=== PATIENT | male | born 1955 | race African-American/Black ===

== ENCOUNTER 2017-06-30 16:57 | Inpatient (IN) | payer MEDICARE, OTHER ==
[~2017-06-30] VITALS: Ht 170.2 cm; Wt 86.2 kg
[2017-06-30 17:00] VITALS: BP 163/68
[2017-06-30 17:48] LABS: ANION GAP 14 mmol/L (5-15); BLOOD UREA NITROGEN 58 mg/dL (7-18); CARBON DIOXIDE 24 MMOL/L (21-32); CHLORIDE 97 MMOL/L (98-107); POTASSIUM 4.5 MMOL/L (3.5-5.1); SODIUM 135 MMOL/L (136-145)
[2017-06-30 17:49] LABS: HEMATOCRIT 32.6 % (42.0-52.0); HEMOGLOBIN 10.1 G/DL (14.2-18.0); MEAN CORPUSCULAR VOLUME 89 FL (80-99); PLATELET COUNT 89 K/UL (150-450); RED BLOOD COUNT 3.68 M/UL (4.70-6.10); RED CELL DISTRIBUTION WIDTH 15.2 % (11.6-14.8); WHITE BLOOD COUNT 6.6 K/UL (4.8-10.8)
--- NOTE | 2017-06-30 17:51 | Emergency Room Report ---
History of Present Illness General Chief Complaint: Nausea Source: Patient Present Illness HPI 62-year-old male, history of end-stage renal disease on dialysis Saturday and Saturday, last dialysis was yesterday, presenting with fever nausea and vomiting. Patient states about 2-3 episodes of nonbilious nonbloody vomiting today. No diarrhea. Is passing gas. No abdominal surgeries. Slight cough. No chest pain no shortness of breath Allergies: Coded Allergies: No Known Allergies (Unverified , 06/30/17) Patient History Past Medical History: see triage record Past Surgical History: none Pertinent Family History: none Reviewed Nursing Documentation: PMH: Agreed, PSxH: Agreed Nursing Documentation-PMH Hx Hypertension: Yes Hx Pacemaker: No Hx Asthma: No Hx Diabetes: Yes Hx Cancer: No Hx Gastrointestinal Problems: No Hx Dialysis: No History Of Psychiatric Problem: No Hx Neurological Problems: No Hx Cerebrovascular Accident: No Review of Systems All Other Systems: negative except mentioned in HPI Physical Exam Vital Signs Date Time Temp Pulse Resp B/P (MAP) Pulse Ox O2 Delivery O2 Flow Rate FiO2 06/30/17 16:49 101.5 101 18 196/97 96 Room Air Sp02 EP Interpretation: reviewed, normal General Appearance: alert, GCS 15, non-toxic, mild distress Head: normocephalic, atraumatic Eyes: bilateral eye normal inspection, bilateral eye PERRL, bilateral eye EOMI ENT: normal ENT inspection, normal pharynx, normal voice, moist mucus membranes Neck: normal inspection, full range of motion, supple Respiratory: normal inspection, lungs clear, normal breath sounds, no respiratory distress, no retraction, no wheezing, speaking full sentences, chest symmetrical Cardiovascular #1: normal inspection, regular rate, rhythm, no edema, normal capillary refill Cardiovascular #2: 2+ radial (R), 2+ radial (L) Gastrointestinal: normal inspection, non tender, soft, non-distended, no guarding Genitourinary: no CVA tenderness Musculoskeletal: normal inspection, back normal, normal range of motion, non- tender Neurologic: normal inspection, alert, oriented x3, responsive, motor strength/ tone normal, sensory intact, normal gait, speech normal Psychiatric: normal inspection, judgement/insight normal, memory normal Skin: normal inspection, normal color, no rash, warm/dry, well hydrated, normal turgor Medical Decision Making Diagnostic Impression: Primary Impression: Nausea and vomiting in adult patient Additional Impressions: Generalized weakness ESRD (end stage renal disease) Fall ER Course 62-year-old male with nausea vomiting, fever Differential Diagnosis: Gastritis, gastroenteritis, cholecystitis, appendicitis, diverticulitis, SBO, mesenteric ischemia, cardiac, UTI/pyelo At this time abdomen is soft nontender, not likely to have acute intra- abdominal surgical pathology, will hold CT for now. Plan: Basic labs, ua, ekg IVF ER course: Patient has remained HD stable during ED stay. Further information is obtained after family arrives, state that patient felt very weak today, was unable to walk, fell and they found him on the ground. Patient is on Plavix. Unknown if there was LOC CT head performed - negative +fever, no source, broad spectrum abx given Disposition: Patient will be admitted to Telemetry Discussed with hospitalist Please note that this Emergency Department Report was dictated using [employer] technology software, occasionally this can lead to erroneous entry secondary to interpretation by the dictation equipment EKG Diagnostic Results EP Interpretation: Yes Rate: normal Rhythm: NSR ST Segments: T-wave inversions V4 V5 V6 ASA given to patient: No Rhythm Strip EP Interpretation: Yes Rate: 85 Rhythm: NSR, no PVCs, no ectopy Laboratory Tests Test 06/30/17 17:30 White Blood Count 6.6 K/UL (4.8-10.8) Red Blood Count 3.68 M/UL (4.70-6.10) L Hemoglobin 10.1 G/DL (14.2-18.0) L Hematocrit 32.6 % (42.0-52.0) L Mean Corpuscular Volume 89 FL (80-99) Mean Corpuscular Hemoglobin 27.4 PG (27.0-31.0) Mean Corpuscular Hemoglobin Concent 30.9 G/DL (32.0-36.0) L Red Cell Distribution Width 15.2 % (11.6-14.8) H Platelet Count 89 K/UL (150-450) L Mean Platelet Volume 9.9 FL (6.5-10.1) Neutrophils (%) (Auto) % (45.0-75.0) Lymphocytes (%) (Auto) % (20.0-45.0) Monocytes (%) (Auto) % (1.0-10.0) Eosinophils (%) (Auto) % (0.0-3.0) Basophils (%) (Auto) % (0.0-2.0) Differential Total Cells Counted 100 Neutrophils % (Manual) 87 % (45-75) H Lymphocytes % (Manual) 11 % (20-45) L Monocytes % (Manual) 2 % (1-10) Eosinophils % (Manual) 0 % (0-3) Basophils % (Manual) 0 % (0-2) Band Neutrophils 0 % (0-8) Platelet Estimate Decreased L Platelet Morphology Normal Hypochromasia 1+ Anisocytosis 1+ Sodium Level 135 MMOL/L (136-145) L Potassium Level 4.5 MMOL/L (3.5-5.1) Chloride Level 97 MMOL/L (98-107) L Carbon Dioxide Level 24 MMOL/L (21-32) Anion Gap 14 mmol/L (5-15) Blood Urea Nitrogen 58 mg/dL (7-18) H Creatinine 9.0 MG/DL (0.55-1.30) H Estimate Glomerular Filtration Rate 7.3 mL/min (>60) Glucose Level 231 MG/DL (74-106) H Lactic Acid Level 1.20 mmol/L (0.66-2.22) Calcium Level 9.0 MG/DL (8.5-10.1) Total Bilirubin 1.0 MG/DL (0.2-1.0) Aspartate Amino Transferase (AST) 33 U/L (15-37) Alanine Aminotransferase (ALT) 40 U/L (12-78) Alkaline Phosphatase 133 U/L (46-116) H Troponin I 0.230 ng/mL (0.000-0.056) Pro-B-Type Natriuretic Peptide 86451 pg/mL (0-125) H Total Protein 7.8 G/DL (6.4-8.2) Albumin 3.9 G/DL (3.4-5.0) Globulin 3.9 g/dL Albumin/Globulin Ratio 1.0 (1.0-2.7) Lipase 105 U/L (73-393) Last Vital Signs Date Time Temp Pulse Resp B/P (MAP) Pulse Ox O2 Delivery O2 Flow Rate FiO2 06/30/17 16:49 101.5 101 18 196/97 96 Room Air Disposition: ADMITTED INPATIENT Condition: Serious Referrals: NOT CHOSEN IPA/MD,REFERRING (PCP) Ellen Fair M.D. Jun 30, 2017 17:51
[2017-06-30 17:59] LABS: ALANINE AMINOTRANSFERASE 40 U/L (12-78); ALBUMIN 3.9 G/DL (3.4-5.0); ALKALINE PHOSPHATASE 133 U/L (46-116); ASPARTATE AMINO TRANSFERASE 33 U/L (15-37)
[2017-06-30] MEDS ORDERED: NEPHRO-VITE RX1 EAC1 PO (18:30)
[2017-06-30] MEDS ORDERED: Vancomycin 1.5gm/D5W 250ml 250 ML IVPB ONE (18:30)
[2017-06-30] MEDS ORDERED: Cefepime HCl 2 GM in D5W 55 ML IVPB ONE (18:30)
[2017-06-30] MEDS ORDERED: LISINOPRIL40 MG ORAL (18:30)
[2017-06-30] MEDS ORDERED: SENSIPAR30 MG ORAL (18:30)
[2017-06-30] MEDS ORDERED: JANUVIA25 MG ORAL (18:30)
[2017-06-30 19:00] VITALS: BP 157/67
[2017-06-30] MEDS ORDERED: Cefepime 2gm ONE (19:10)
[2017-06-30 20:30] VITALS: BP 152/65
[2017-06-30 22:00] VITALS: BP 158/71
[2017-06-30 23:30] VITALS: BP 161/69
[2017-07-01 00:43] VITALS: BP 160/72
--- NOTE | 2017-07-01 02:30 | History and Physical Report ---
DATE OF ADMISSION: 06/30/2017 REASON FOR ADMISSION: Elevated troponin level and fevers. HISTORY OF PRESENT ILLNESS: This is a 62-year-old male with end-stage renal disease, on hemodialysis three times a week. His last dialysis was yesterday and subsequently he developed nausea, vomiting, and anorexia. He also had fevers. Temperature of 101 was recorded in the emergency room. The patient had 2-3 episodes of bilious vomiting today. No other symptoms including abdominal pain or diarrhea were noted. He has had slight cough, however. PAST MEDICAL HISTORY: Includes hypertension, end-stage renal disease, type 2 diabetes mellitus, questionable history of retinopathy. ALLERGIES: None. FAMILY HISTORY: Noncontributory. SOCIAL HISTORY: Negative for smoking, alcohol, or substance abuse. MEDICATIONS: Prior to admission, incomplete list reviewed and reconciled. I will attempt to contact family members to update list. PHYSICAL EXAMINATION: VITAL SIGNS: Temperature 101.5, blood pressure 196/97, pulse 101, respiratory rate 18. GENERAL: Poor attention span due to somnolence, but the patient is arousable and coherent. HEENT: Conjunctivae pink. Sclerae anicteric. Oropharynx clear. Mucous membranes moist. NECK: Supple. LUNGS: Clear. CARDIAC: Regular rhythm and rate. Normal S1, S2 with a fourth heart sound. ABDOMEN: Soft, nontender. No guarding or rebound. EXTREMITIES: No edema. LABORATORY AND DIAGNOSTIC DATA: EKG reveals sinus rhythm, left ventricular hypertrophy with repolarization changes. White count 6.6, hemoglobin 10.1. Troponin 0.23. Lactic acid normal. BUN 58, creatinine 9, sodium 135, potassium 4.5, bicarbonate 24. Pro-natriuretic peptide 34,000. IMPRESSION: 1. Fevers, nausea, and vomiting, possible gastroenteritis or other colitis. 2. Acute on chronic diastolic congestive heart failure. 3. Acute myocardial ischemia and possible qyi-MQ-tmylanqst infarction. 4. End-stage renal disease. 5. Anemia of chronic kidney disease. 6. Type 2 diabetes mellitus. 7. Hypertensive heart disease, now with hypertensive urgency. PLAN: 1. Continue empiric antibiotics initiated in the emergency room. 2. Follow up culture results. 3. Serial troponin, CK, and CK-MB fractions. 4. Cardiac monitoring. 5. Anti-platelet therapy. 6. Beta-blockade. 7. Titration of antihypertensive. 8. Renal consultation for hemodialysis and ultrafiltration. 9. Further recommendations will follow based on clinical course. Gonzalo Salas M.D. DR: Myranda JOB#: [id number] CC:
[2017-07-01] MEDS ORDERED: Mylanta II UD 30ml ORAL ONE (04:15)
[2017-07-01] MEDS ORDERED: NovoLOG Insulin Flexpen SUBQ SCH (06:30)
[2017-07-01 06:49] LABS: HEMATOCRIT 28.7 % (42.0-52.0); HEMOGLOBIN 9.1 G/DL (14.2-18.0); MEAN CORPUSCULAR VOLUME 88 FL (80-99); PLATELET COUNT 73 K/UL (150-450); RED BLOOD COUNT 3.26 M/UL (4.70-6.10); RED CELL DISTRIBUTION WIDTH 15.1 % (11.6-14.8); WHITE BLOOD COUNT 6.1 K/UL (4.8-10.8)
[2017-07-01] MEDS: NovoLOG Insulin Flexpen SUBQ SCH ×4 (06:56→22:25)
[2017-07-01 07:21] LABS: ALANINE AMINOTRANSFERASE 42 U/L (12-78); ALBUMIN 3.4 G/DL (3.4-5.0); ALBUMIN/GLOBULIN RATIO 0.9 (1.0-2.7); ALKALINE PHOSPHATASE 110 U/L (46-116); ANION GAP 15 mmol/L (5-15); ASPARTATE AMINO TRANSFERASE 21 U/L (15-37); BILIRUBIN,TOTAL 0.9 MG/DL (0.2-1.0); BLOOD UREA NITROGEN 68 mg/dL (7-18); CALCIUM 8.3 MG/DL (8.5-10.1); CARBON DIOXIDE 23 MMOL/L (21-32); CHLORIDE 97 MMOL/L (98-107); CHOLESTEROL 127 MG/DL (< 200); CKMB 1.1 NG/ML (0.0-3.6); CREATINE KINASE 144 U/L (26-308); CREATININE 10.2 MG/DL (0.55-1.30); HDL CHOLESTEROL 44 MG/DL (40-60); POTASSIUM 4.6 MMOL/L (3.5-5.1); SODIUM 135 MMOL/L (136-145); TRIGLYCERIDES 91 MG/DL (30-150)
[2017-07-01 08:00] VITALS: BP 149/70
--- NOTE | 2017-07-01 08:12 | Diagnostic Imaging Report ---
Indication: Reason For Exam: PAIN Technique: Continuous helical CT scanning of the head was performed without intravenous contrast material. Axial and coronal 5 mm sections were generated. Dose: Total Dose Length Product - DLP [address] Dose Index - CTDIvol(s) 70.3 mGy. Automated exposure control was utilized for dose reduction. Comparison: None Findings: There is mild prominence of cortical sulci and the ventricular system. Mild periventricular low density is present. There is no shift of midline structures. No abnormal extra-axial fluid collections are noted. There is no evidence of intracerebral bleeding. No other abnormal high or low density areas are noted within the brain. Impression: Mild atrophy. Mild chronic small vessel white matter ischemic change. No acute abnormality. The above report is concordant with preliminary reading by [employer] . The CT scanner at [facility] is accredited by the [employer] and the scans are performed using protocols designed to limit radiation exposure to as low as reasonably achievable to attain images of sufficient resolution adequate for diagnostic evaluation.
[2017-07-01] MEDS: Sensipar 30mg Tab ORAL SCH ×3 (09:00→15:57)
[2017-07-01] MEDS: Aspirin Baby 81mg ORAL SCH (10:07)
[2017-07-01 12:00] VITALS: BP 150/71
--- NOTE | 2017-07-01 14:56 | Consultation ---
Consult Note Consult Note asked by Dr casillas to ellie for dialysis management Present Illness HPI 62-year-old male, history of end-stage renal disease on dialysis Saturday and Saturday, last dialysis was yesterday, presenting with fever nausea and vomiting. Patient states about 2-3 episodes of nonbilious nonbloody vomiting today. No diarrhea. Is passing gas. No abdominal surgeries. Slight cough. No chest pain no shortness of breath Hx Hypertension: Yes Hx Diabetes: Yes Assessment/Plan IMP: 1. Fevers, nausea, and vomiting, possible gastroenteritis or other colitis. 2. Acute on chronic diastolic congestive heart failure. 3. Acute myocardial ischemia and possible lkd-MT-lvabbzgdq infarction. 4. End-stage renal disease. last dialysed 06/29 5. Anemia of chronic kidney disease. 6. Type 2 diabetes mellitus. 7. Hypertensive heart disease, now with hypertensive urgency. Plan: Dialysed 07/01 next HD 07/03 IV iron and SQ EPO Renvela Antibiotics optimize cardiac and pulm status per orders OUSMANE VALENTINE Jul 01, 2017 14:56
[2017-07-01 18:00] VITALS: BP 156/91
[2017-07-01] MEDS ORDERED: Cefepime HCl 1 GM in D5W 55 ML IVPB SCH (19:00)
--- NOTE | 2017-07-01 19:14 | Cardiology Report ---
APPROVED REPORT EKG Measurement Heart [id number] [place] [id number] Normal sinus rhythm Left ventricular hypertrophy with repolarization abnormality Abnormal ECG
--- NOTE | 2017-07-01 19:45 | Progress Note ---
DATE: 07/01/2017 CARDIOLOGY AND INTERNAL MEDICINE PROGRESS NOTE SUBJECTIVE: The patient seen with family members at bedside today. More history is obtained. The patient apparently has been withdrawn and "sick" for the past 3-4 days. It started with upper respiratory infection and what is described as cold. It resulted in loss of appetite, weakness, and inability to perform ADLs. He was still weak yesterday. He apparently fell. He is unable to mobilize independently. He did go to dialysis on Saturday, but did not have a full session. He had fevers yesterday, but has defervesced since admission. OBJECTIVE: VITAL SIGNS: Blood pressure 160/72, pulse 80, respiratory rate 24, afebrile, and room air oxygen saturation 97%. HEENT: Oropharynx clear. NECK: Supple. LUNGS: With few rhonchi. CARDIAC: Regular rhythm and rate. Normal S1 and S2. ABDOMEN: Soft, nontender. No guarding or rebound. EXTREMITIES: No edema. LABORATORY AND DIAGNOSTIC DATA: There was no record of any chest x-ray done in the emergency room although last night and I have reordered one stat. Laboratories today, white count 6, hemoglobin 9. BUN 68, creatinine 10, potassium 4.6, and bicarbonate 23. Troponin increased to 0.355. CK and CK-MB as well as CK relative index are negative. Natriuretic peptide is over 35,000. IMPRESSION: 1. Sepsis, possible pneumonia. 2. Acute on chronic diastolic congestive heart failure. 3. Acute myocardial ischemia. 4. Possible mmb-VH-ugqvrtojd infarction. 5. Type 2 diabetes with hyperglycemia. 6. End-stage renal disease, on hemodialysis. 7. The patient remains critical with guarded prognosis. PLAN: 1. Anti-platelet therapy. 2. Advance beta-jeyson. 3. Titrate antihypertensives as needed. 4. Empiric antibiotics. 5. Await chest x-ray. 6. DVT prophylaxis. 7. Hemodialysis with ultrafiltration. Gonzalo Salas M.D. DR: Jewels JOB#: [id number] CC:
[2017-07-01 20:00] VITALS: BP 141/90
[2017-07-01] MEDS: Heparin 5000 units/ml inj SUBQ SCH (21:00)
[2017-07-01 22:00] VITALS: BP 180/89
[2017-07-01] MEDS: Carvedilol 6.25mg Tab ORAL SCH (22:19)
[2017-07-01] MEDS: Cefepime 500mg in D5W 55ml IVPB SCH (22:20)
[2017-07-02] VITALS: BP 150/72
[2017-07-02 04:00] VITALS: BP 135/72
[2017-07-02] MEDS: NovoLOG Insulin Flexpen SUBQ SCH ×4 (06:48→21:22)
[2017-07-02 08:00] VITALS: BP 137/65
[2017-07-02 08:07] LABS: HEMATOCRIT 29.5 % (42.0-52.0); HEMOGLOBIN 9.3 G/DL (14.2-18.0); MEAN CORPUSCULAR VOLUME 87 FL (80-99); PLATELET COUNT 91 K/UL (150-450); RED BLOOD COUNT 3.37 M/UL (4.70-6.10); RED CELL DISTRIBUTION WIDTH 15.2 % (11.6-14.8); WHITE BLOOD COUNT 4.8 K/UL (4.8-10.8)
[2017-07-02 08:41] LABS: ANION GAP 11 mmol/L (5-15); BLOOD UREA NITROGEN 62 mg/dL (7-18); CALCIUM 8.2 MG/DL (8.5-10.1); CARBON DIOXIDE 32 MMOL/L (21-32); CHLORIDE 98 MMOL/L (98-107); CHOLESTEROL 123 MG/DL (< 200); CREATININE 8.7 MG/DL (0.55-1.30); FERRITIN 426 NG/ML (8-388); HDL CHOLESTEROL 33 MG/DL (40-60); POTASSIUM 3.6 MMOL/L (3.5-5.1); SODIUM 141 MMOL/L (136-145); TRIGLYCERIDES 134 MG/DL (30-150)
[2017-07-02] MEDS: Heparin 5000 units/ml inj SUBQ SCH ×2 (09:00→21:00)
[2017-07-02 09:10] LABS: % IRON SATURATION 9 % (15-50); IRON 16 ug/dL (50-175); TOTAL IRON BINDING CAPACITY 184 ug/dL (250-450)
[2017-07-02 09:11] LABS: CREATINE KINASE 198 U/L (26-308); GAMMA GLUTAMYL TRANSPEPTIDASE 112 U/L (5-85); PHOSPHORUS 5.6 MG/DL (2.5-4.9)
[2017-07-02] MEDS: Carvedilol 6.25mg Tab ORAL SCH ×2 (09:16→21:21)
[2017-07-02] MEDS: Aspirin Baby 81mg ORAL SCH (09:17)
[2017-07-02] MEDS ORDERED: Iron Sucrose 200 MG in NS 110 ML IV ONE (11:00)
[2017-07-02 12:00] VITALS: BP 131/58
[2017-07-02] MEDS: Docusate 100mg cap ORAL SCH ×2 (13:18→18:00)
--- NOTE | 2017-07-02 14:19 | Diagnostic Imaging Report ---
Indication: Abnormal breath sounds Comparison: None A single view chest radiograph was obtained. Findings: Exam limited by rotation. The heart is enlarged. Mechanical aortic valve/stent noted. Stent noted in the left upper arm. Lungs are essentially clear. IMPRESSION: Cardiomegaly. No acute findings
--- NOTE | 2017-07-02 15:06 | Diagnostic Imaging Report ---
Indication: Cough Comparison: 07/01/1970 A single view chest radiograph was obtained. Findings: No definite infiltrate or pulmonary vascular congestion identified. The heart is enlarged. The aorta is mildly enlarged consistent with atherosclerotic vascular disease. The bones are osteopenic. Impression: No acute disease
[2017-07-02 16:00] VITALS: BP 132/64
--- NOTE | 2017-07-02 16:30 | Consultation ---
DATE OF CONSULTATION: 07/02/2017 INFECTIOUS DISEASES CONSULTATION REFERRING PHYSICIAN: Gonzalo Salas M.D. REASON FOR CONSULTATION: Possible pneumonia. HISTORY OF PRESENTING ILLNESS: This is a 62-year-old gentleman with history of diabetes, hypertension, coronary artery disease, status post stent placement, renal failure on dialysis, who came in with fevers along with cough, nausea and vomiting. An Infectious Diseases consultation was obtained for a possible pneumonia. PAST MEDICAL HISTORY: 1. History of diabetes. 2. Hypertension. 3. Possible retinopathy. 4. Coronary artery disease, status post stent placement. 5. End-stage renal disease, on dialysis. MEDICATIONS: As an inpatient, he is on Epogen, docusate, Renvela, subcutaneous heparin, carvedilol, cefepime, clonidine, aspirin, Sensipar, amlodipine, insulin, Zofran, and intravenous vancomycin. ALLERGIES: No known drug allergies. SOCIAL HISTORY: He does not smoke, drink, or use drugs. FAMILY HISTORY: Noncontributory. REVIEW OF SYSTEMS: RESPIRATORY: He had fever and chills. He has a cough. He has some shortness of breath. No chest pain. CARDIAC: No chest pain. No palpitations. No dizziness. No syncope. GASTROINTESTINAL: No nausea. No vomiting. No abdominal pain or diarrhea. PHYSICAL EXAMINATION: VITAL SIGNS: Temperature of 98.1 degrees, T-max of 101.7 degrees, pulse of 69, respiratory rate 20, blood pressure 137/65 and O2 saturation of 94%. HEENT: Pupils equally reactive to light and accommodation. Mouth appears clean without thrush. NECK: Supple. No adenopathy. No JVD. CARDIOVASCULAR: Regular rate and rhythm. No murmurs. LUNGS: Clear to auscultation bilaterally. No crackles. No wheezes. ABDOMEN: Soft and nontender. No organomegaly. EXTREMITIES: No cyanosis, no clubbing, and no edema. LABORATORY AND DIAGNOSTIC DATA: White count 4.8, hemoglobin 9.3, hematocrit 29.5, MCV 87, and platelet count of 91 with neutrophils of 83%. Sodium 141, potassium 3.6, chloride 98, bicarbonate 32, BUN 62, creatinine 8.7, and glucose 133. Calcium of 8.2. Total bilirubin of 0.9. On 07/01/2017, AST 21, ALT 40 and alkaline phosphatase 110. CK 144 and CK-MB 1.1. Troponin 0.64. Beta-natriuretic peptide 135,000. Blood cultures are negative so far. CT head is showing mild atrophy, mild chronic small-vessel ischemic disease. ASSESSMENT: 1. This is a 62-year-old gentleman with history of diabetes, hypertension and renal failure, who comes in with fever as well as cough, would be concern regarding a pneumonia, community-acquired pneumonia versus atypical pneumonia. 2. Diabetes. 3. Hypertension. 4. Renal failure. PLAN: 1. Continue IV vancomycin and cefepime for now. 2. We will order sputum for Gram-stain and culture. 3. We will order a chest x-ray. 4. We will follow up cultures. I would like to thank, Dr. Salas, for this consultation. Carmela Rm M.D. DR: JANNY JOB#: [id number] CC: Gonzalo Salas M.D.
[2017-07-02] MEDS ORDERED: Tubing IV Secondary IV ONE (17:00)
[2017-07-02] MEDS ORDERED: NS 275ml ONE (17:00)
[2017-07-02] MEDS ORDERED: Vancomycin 1250mg/D5W 250ml IVPB ONE (18:00)
[2017-07-02] MEDS ORDERED: Renvela 800mg Pkt ORAL SCH (19:00)
[2017-07-02 20:00] VITALS: BP 145/70
[2017-07-02] MEDS: Renvela 800mg Pkt ORAL SCH (21:21)
[2017-07-02] MEDS: Cefepime 500mg in D5W 55ml IVPB SCH (21:28)
[2017-07-03] VITALS: BP 143/69
[2017-07-03 04:00] VITALS: BP 163/81
--- NOTE | 2017-07-03 04:15 | Progress Note ---
DATE: 07/02/2017 INTERNAL MEDICINE PROGRESS NOTE SUBJECTIVE: The patient is still weak. He has less cough and congestion. He is unable to mobilize without assist. He is status post hemodialysis with ultrafiltration. No new fevers. OBJECTIVE: VITAL SIGNS: Blood pressure 145/70, pulse 71, respirations 20, and afebrile. LUNGS: Coarse breath sounds. HEART: Regular rhythm and rate. Normal S1 and S2 with a fourth heart sound. ABDOMEN: Soft. EXTREMITIES: No edema. Symmetric strength. LABORATORY DATA: White count 4.8 and hemoglobin 9.3. Magnesium 2.5. Iron is 16%. IMPRESSION: 1. Acute bronchitis. 2. Metabolic encephalopathy. 3. End-stage renal disease. 4. Acute on chronic diastolic congestive heart failure. 5. Iron deficiency anemia, which is multifactorial. 6. Troponin leak suggesting chronic ischemic heart disease. PLAN: 1. Iron replacement. 2. Empiric antibiotics. 3. Recheck chest x-ray. 4. Follow up sputum studies. 5. Hemodialysis with ultrafiltration. 6. Mobilize. 7. Titrate cardiovascular regimen. 8. Consideration for ischemic workup to follow. Gonzalo Salas M.D. DR: DWAYNE JOB#: [id number] CC:
[2017-07-03] MEDS: NovoLOG Insulin Flexpen SUBQ SCH ×4 (06:39→21:16)
[2017-07-03] MEDS: Carvedilol 6.25mg Tab ORAL SCH ×2 (09:00→21:15)
[2017-07-03] MEDS: Heparin 5000 units/ml inj SUBQ SCH ×2 (09:00→21:00)
[2017-07-03] MEDS: Docusate 100mg cap ORAL SCH ×3 (09:00→17:34)
[2017-07-03] MEDS: Aspirin Baby 81mg ORAL SCH (09:00)
[2017-07-03 11:00] VITALS: BP 159/82
[2017-07-03] MEDS: Renvela 800mg Pkt ORAL SCH ×3 (11:00→17:37)
[2017-07-03] MEDS: Sensipar 30mg Tab ORAL SCH (11:00)
--- NOTE | 2017-07-03 11:08 | Infectious Diseases Prog Note ---
Assessment/Plan Assessment/Plan antibiotics : vancomycin iv, cefepime A 1. fever improving 2. ? pneumonia 3. DM 4. HTN 5. renal failure P 1. continue vancomycin iv, cefepime 2. will follow up cultures Subjective Constitutional: Denies: fever, chills Respiratory: Reports: shortness of breath, dry cough Gastrointestinal/Abdominal: Denies: nausea, vomiting, diarrhea Musculoskeletal: Reports: pain - on coughing Allergies: Coded Allergies: No Known Allergies (Unverified , 06/30/17) Objective Vital Signs Last 24 Hour Vital Signs Date Time Temp Pulse Resp B/P (MAP) Pulse Ox O2 Delivery O2 Flow Rate FiO2 07/03/17 04:00 74 07/03/17 04:00 97.0 71 21 163/81 93 Room Air 07/03/17 00:00 68 07/03/17 00:00 98.1 68 20 143/69 99 Room Air 07/02/17 21:21 71 145/70 07/02/17 20:00 98.1 71 20 145/70 97 Room Air 07/02/17 20:00 71 07/02/17 16:00 71 07/02/17 16:00 98.6 72 20 132/64 92 Room Air 07/02/17 12:00 67 07/02/17 12:00 98.4 65 20 131/58 92 Room Air Height (Feet): 5 Height (Inches): 7.00 Weight (Pounds): 190 Respiratory/Chest: lungs clear Cardiovascular: normal rate, regular rhythm, no gallop/murmur Abdomen: soft, non tender Extremities: no edema Microbiology Date/Time Source Procedure Growth Status 06/30/17 17:30 Blood Blood Culture - Preliminary NO GROWTH AFTER 48 HOURS Resulted 06/30/17 17:20 Blood Blood Culture - Preliminary NO GROWTH AFTER 48 HOURS Resulted 07/01/17 00:00 Nasal Nares MRSA Culture - Final NO METHICILLIN RESISTANT STAPH AUREUS... Complete 07/01/17 00:00 Rectum VRE Culture - Final NO VANCOMYCIN RESISTANT ENTEROCOCCUS ... Complete Laboratory Tests Test 07/02/17 15:00 Random Vancomycin Level 11.3 ug/mL MADISON CAI Jul 03, 2017 11:08
--- NOTE | 2017-07-03 14:01 | Nephrology Progress Note ---
Assessment/Plan Problem List: (1) ESRD (end stage renal disease) (2) Troponin level elevated Assessment 1. Fevers, nausea, and vomiting, possible gastroenteritis or other colitis. 2. Acute on chronic diastolic congestive heart failure. 3. Acute myocardial ischemia and possible aur-EL-gwzkozrrq infarction. 4. End-stage renal disease. last dialysed 06/29 5. Anemia of chronic kidney disease. 6. Type 2 diabetes mellitus. 7. Hypertensive heart disease, now with hypertensive urgency. Plan Plan: Dialysed 07/01 next HD 07/03 IV iron and SQ EPO Renvela Antibiotics optimize cardiac and pulm status per orders Subjective ROS Limited/Unobtainable: No Constitutional: Reports: malaise Objective Objective Last 24 Hour Vital Signs Date Time Temp Pulse Resp B/P (MAP) Pulse Ox O2 Delivery O2 Flow Rate FiO2 07/03/17 04:00 74 07/03/17 04:00 97.0 71 21 163/81 93 Room Air 07/03/17 00:00 68 07/03/17 00:00 98.1 68 20 143/69 99 Room Air 07/02/17 21:21 71 145/70 07/02/17 20:00 98.1 71 20 145/70 97 Room Air 07/02/17 20:00 71 07/02/17 16:00 71 07/02/17 16:00 98.6 72 20 132/64 92 Room Air Intake and Output 07/02/17 07/03/17 19:00 07:00 Intake Total 240 ml Output Total 100 ml Balance 240 ml -100 ml Intake Oral 240 ml Output Urine Total 100 ml Laboratory Tests 07/02/17 15:00: Random Vancomycin Level 11.3 Height (Feet): 5 Height (Inches): 7.00 Weight (Pounds): 190 General Appearance: no apparent distress Objective no change in PE OUSMANE VALENTINE Jul 03, 2017 14:01
[2017-07-03 15:15] VITALS: BP 125/89
[2017-07-03 20:00] VITALS: BP 165/81
[2017-07-03] MEDS: Cefepime 500mg in D5W 55ml IVPB SCH (21:14)
[2017-07-03] MEDS: Epogen (for ESRD on dialysis) SUBQ SCH (21:14)
[2017-07-03] MEDS: Iron Sucrose 100 MG in NS 55 ML IV SCH (21:14)
[2017-07-04] VITALS: BP 178/93
--- NOTE | 2017-07-04 00:45 | Progress Note ---
DATE: 07/03/2017 CARDIOLOGY PROGRESS NOTE SUBJECTIVE: The patient is still feeling weak and lightheaded at times but overall improved. OBJECTIVE: VITAL SIGNS: Afebrile, blood pressure 125/89 to 165/81, heart rate 77 to 90, and respiratory rate 20. Monitor sinus with atrial ectopics. LUNGS: Good breath sounds. No wheezing. HEART: Regular rhythm and rate. Normal S1 and S2 with a fourth heart sound. ABDOMEN: Soft. EXTREMITIES: No edema. LABORATORY DATA: Cultures remain negative. IMPRESSION: 1. End-stage renal disease, on hemodialysis. 2. Probable gastroenteritis. 3. Possible upper respiratory infection. 4. Acute myocardial ischemia and possible non-ST elevation infarction. 5. Acute on chronic diastolic congestive heart failure. 6. Type 2 diabetes mellitus. 7. Hypertensive heart disease with hypertensive urgency now recovering. PLAN: 1. Hemodialysis with ultrafiltration. 2. Iron and Epogen replacement. 3. Empiric antibiotics. 4. Mobilize. 5. Advance antihypertensive therapy. 6. Discharge planning. Gonzalo Salas M.D. DR: DWAYNE JOB#: [id number] CC:
[2017-07-04 04:00] VITALS: BP 168/92
[2017-07-04] MEDS: NovoLOG Insulin Flexpen SUBQ SCH ×4 (06:28→23:07)
[2017-07-04 08:00] VITALS: BP 175/94
[2017-07-04 08:19] LABS: BASOPHILS % (AUTO) 0.8 % (0.0-2.0); EOSINOPHILS % (AUTO) 0.2 % (0.0-3.0); HEMATOCRIT 34.2 % (42.0-52.0); HEMOGLOBIN 10.7 G/DL (14.2-18.0); LYMPHOCYTES % (AUTO) 8.4 % (20.0-45.0); MEAN CORPUSCULAR VOLUME 89 FL (80-99); NEUTROPHILS % (AUTO) 83.6 % (45.0-75.0); PLATELET COUNT 122 K/UL (150-450); RED BLOOD COUNT 3.85 M/UL (4.70-6.10); RED CELL DISTRIBUTION WIDTH 15.1 % (11.6-14.8); WHITE BLOOD COUNT 5.8 K/UL (4.8-10.8)
[2017-07-04 08:36] LABS: ALANINE AMINOTRANSFERASE 34 U/L (12-78); ALBUMIN 2.9 G/DL (3.4-5.0); ALBUMIN/GLOBULIN RATIO 0.7 (1.0-2.7); ALKALINE PHOSPHATASE 94 U/L (46-116); ANION GAP 11 mmol/L (5-15); ASPARTATE AMINO TRANSFERASE 25 U/L (15-37); BILIRUBIN,TOTAL 1.2 MG/DL (0.2-1.0); BLOOD UREA NITROGEN 61 mg/dL (7-18); CALCIUM 9.1 MG/DL (8.5-10.1); CARBON DIOXIDE 32 MMOL/L (21-32); CHLORIDE 97 MMOL/L (98-107); CREATININE 8.7 MG/DL (0.55-1.30); GAMMA GLUTAMYL TRANSPEPTIDASE 96 U/L (5-85); PHOSPHORUS 5.4 MG/DL (2.5-4.9); POTASSIUM 3.8 MMOL/L (3.5-5.1); SODIUM 140 MMOL/L (136-145)
[2017-07-04] MEDS: Carvedilol 6.25mg Tab ORAL SCH ×2 (08:54→23:05)
[2017-07-04] MEDS: Renvela 800mg Pkt ORAL SCH ×3 (08:55→18:00)
[2017-07-04] MEDS: Aspirin Baby 81mg ORAL SCH (08:58)
[2017-07-04] MEDS: Docusate 100mg cap ORAL SCH ×3 (08:59→18:00)
[2017-07-04] MEDS: Heparin 5000 units/ml inj SUBQ SCH ×2 (08:59→21:00)
[2017-07-04 09:43] LABS: BILIRUBIN,DIRECT 0.3 MG/DL (0.0-0.3)
--- NOTE | 2017-07-04 10:47 | Infectious Diseases Prog Note ---
Assessment/Plan Assessment/Plan A 1. fever resolved 2. ? pneumonia 3. DM 4. HPN 5. renal failure, ESRD P 1. discontinue vancomycin iv, continue cefepime 2. will follow up cultures Subjective ROS Limited/Unobtainable: No Constitutional: Reports: no symptoms Respiratory: Reports: no symptoms Cardiovascular: Reports: no symptoms Gastrointestinal/Abdominal: Reports: no symptoms Genitourinary: Reports: no symptoms Allergies: Coded Allergies: No Known Allergies (Unverified , 06/30/17) Objective Vital Signs Last 24 Hour Vital Signs Date Time Temp Pulse Resp B/P (MAP) Pulse Ox O2 Delivery O2 Flow Rate FiO2 07/04/17 08:55 102 175/94 07/04/17 08:54 102 175/94 07/04/17 08:00 98.2 102 20 175/94 95 Room Air 07/04/17 04:00 98.1 90 20 168/92 90 07/04/17 04:00 90 07/04/17 00:07 178/93 07/04/17 00:00 96 07/04/17 00:00 97.9 89 20 178/93 90 07/03/17 21:15 90 165/81 07/03/17 20:00 98.2 90 20 165/81 90 07/03/17 20:00 91 07/03/17 16:00 77 07/03/17 15:15 98.0 78 20 125/89 Room Air 07/03/17 15:15 Room Air 07/03/17 12:00 72 07/03/17 11:00 98.1 75 20 159/82 Room Air 07/03/17 11:00 Room Air Height (Feet): 5 Height (Inches): 7.00 Weight (Pounds): 190 General Appearance: no acute distress HEENT: mucous membranes moist Respiratory/Chest: lungs clear Cardiovascular: tachycardia Abdomen: soft, non tender Extremities: no edema Neurologic/Psychiatric: alert, responsive Laboratory Tests Test 07/04/17 06:50 White Blood Count 5.8 K/UL (4.8-10.8) Red Blood Count 3.85 M/UL (4.70-6.10) L Hemoglobin 10.7 G/DL (14.2-18.0) L Hematocrit 34.2 % (42.0-52.0) L Mean Corpuscular Volume 89 FL (80-99) Mean Corpuscular Hemoglobin 27.7 PG (27.0-31.0) Mean Corpuscular Hemoglobin Concent 31.1 G/DL (32.0-36.0) L Red Cell Distribution Width 15.1 % (11.6-14.8) H Platelet Count 122 K/UL (150-450) L Mean Platelet Volume 9.0 FL (6.5-10.1) Neutrophils (%) (Auto) 83.6 % (45.0-75.0) H Lymphocytes (%) (Auto) 8.4 % (20.0-45.0) L Monocytes (%) (Auto) 7.0 % (1.0-10.0) Eosinophils (%) (Auto) 0.2 % (0.0-3.0) Basophils (%) (Auto) 0.8 % (0.0-2.0) Sodium Level 140 MMOL/L (136-145) Potassium Level 3.8 MMOL/L (3.5-5.1) Chloride Level 97 MMOL/L (98-107) L Carbon Dioxide Level 32 MMOL/L (21-32) Anion Gap 11 mmol/L (5-15) Blood Urea Nitrogen 61 mg/dL (7-18) H Creatinine 8.7 MG/DL (0.55-1.30) H Estimat Glomerular Filtration Rate 7.5 mL/min (>60) Glucose Level 232 MG/DL (74-106) H Uric Acid 4.9 MG/DL (2.6-7.2) Calcium Level 9.1 MG/DL (8.5-10.1) Phosphorus Level 5.4 MG/DL (2.5-4.9) H Magnesium Level 2.3 MG/DL (1.8-2.4) Total Bilirubin 1.2 MG/DL (0.2-1.0) H Direct Bilirubin 0.3 MG/DL (0.0-0.3) Gamma Glutamyl Transpeptidase 96 U/L (5-85) H Aspartate Amino Transf (AST/SGOT) 25 U/L (15-37) Alanine Aminotransferase (ALT/SGPT) 34 U/L (12-78) Alkaline Phosphatase 94 U/L (46-116) Troponin I 0.714 ng/mL (0.000-0.056) C-Reactive Protein, Quantitative 13.5 mg/dL (0.00-0.90) H Pro-B-Type Natriuretic Peptide > 59335 pg/mL (0-125) H Total Protein 7.1 G/DL (6.4-8.2) Albumin 2.9 G/DL (3.4-5.0) L Globulin 4.2 g/dL Albumin/Globulin Ratio 0.7 (1.0-2.7) L Current Medications Medications (Trade) Dose Ordered Sig/Leida Route PRN Reason Start Time Stop Time Status Last Admin Dose Admin Amlodipine Besylate (Norvasc) 5 mg DAILY ORAL 07/01/17 09:00 07/31/17 08:59 07/04/17 08:55 Aspirin (ASA) 81 mg DAILY ORAL 07/01/17 09:00 07/31/17 08:59 07/02/17 09:17 Carvedilol (Coreg) 12.5 mg EVERY 12 HOURS ORAL 07/04/17 09:00 08/03/17 08:59 07/04/17 08:54 Cefepime HCl 500 mg/Dextrose 55 ml @ 110 mls/hr Q24H IVPB 07/01/17 21:00 07/08/17 20:59 07/03/17 21:14 Clonidine HCl (Catapres) 0.1 mg Q4H PRN ORAL SBP above 160 07/01/17 16:00 07/31/17 15:59 07/04/17 00:07 Dextrose (Dextrose 50%) STAT PRN IV Hypoglycemia 07/01/17 02:00 07/31/17 01:59 Docusate Sodium (Colace) 100 mg THREE TIMES A DAY ORAL 07/02/17 13:00 08/01/17 12:59 07/02/17 13:18 Epoetin Lizandro (Procrit (for ESRD on dialysis)) 10,000 units MON-WED-FRI SUBQ 07/03/17 21:00 08/02/17 20:59 07/03/17 21:14 Heparin Sodium (Porcine) (Heparin 5000 units/ml) 5,000 units EVERY 12 HOURS SUBQ 07/01/17 21:00 07/31/17 20:59 Insulin Aspart (NovoLOG) BEFORE MEALS AND HS SUBQ 07/01/17 06:30 07/31/17 06:29 07/04/17 06:28 Iron Sucrose 100 mg/Sodium Chloride 60 ml @ 240 mls/hr BEDTIME IV 07/03/17 21:00 07/07/17 21:14 07/03/17 21:14 Ondansetron HCl (Zofran) 4 mg Q6H PRN IVP Nausea & Vomiting 07/01/17 02:00 07/31/17 01:59 07/02/17 22:13 Sevelamer Carbonate (Renvela) 1,600 mg THREE TIMES A DAY ORAL 07/03/17 18:00 08/02/17 17:59 07/04/17 08:55 Vancomycin HCl (Vanco rx to dose) 1 ea DAILY PRN MISC Per rx protocol 07/01/17 02:00 07/31/17 01:59 MILAGRO LOCKHART Jul 04, 2017 10:47
--- NOTE | 2017-07-04 11:25 | Nephrology Progress Note ---
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 Fevers, nausea, and vomiting, possible gastroenteritis or other colitis. 2. Acute on chronic diastolic congestive heart failure. 3. Acute myocardial ischemia and possible osp-NQ-ypdunptux infarction. 4. End-stage renal disease. last dialysed 06/29 5. Anemia of chronic kidney disease. 6. Type 2 diabetes mellitus. 7. Hypertensive heart disease, now with hypertensive urgency. Plan Plan: adjust BP meds and HR Add Cardiazem and Zestril Coreg dose is upped next HD 07/05 IV iron and SQ EPO Renvela Antibiotics optimize cardiac and pulm status per orders Subjective ROS Limited/Unobtainable: No Constitutional: Reports: malaise Objective Objective Last 24 Hour Vital Signs Date Time Temp Pulse Resp B/P (MAP) Pulse Ox O2 Delivery O2 Flow Rate FiO2 07/04/17 08:55 102 175/94 07/04/17 08:54 102 175/94 07/04/17 08:00 98.2 102 20 175/94 95 Room Air 07/04/17 04:00 98.1 90 20 168/92 90 07/04/17 04:00 90 07/04/17 00:07 178/93 07/04/17 00:00 96 07/04/17 00:00 97.9 89 20 178/93 90 07/03/17 21:15 90 165/81 07/03/17 20:00 98.2 90 20 165/81 90 07/03/17 20:00 91 07/03/17 16:00 77 07/03/17 15:15 98.0 78 20 125/89 Room Air 07/03/17 15:15 Room Air 07/03/17 12:00 72 Intake and Output 07/03/17 07/04/17 19:00 07:00 Intake Total 240 ml 120 ml Output Total 2050 ml Balance -1810 ml 120 ml Intake Oral 240 ml 120 ml Hemodialysis UF 2050 ml Laboratory Tests 07/04/17 06:50: White Blood Count 5.8, Red Blood Count 3.85L, Hemoglobin 10.7L, Hematocrit 34.2L , Mean Corpuscular Volume 89, Mean Corpuscular Hemoglobin 27.7, Mean Corpuscular Hemoglobin Concent 31.1L, Red Cell Distribution Width 15.1H, Platelet Count 122L, Mean Platelet Volume 9.0, Neutrophils (%) (Auto) 83.6H, Lymphocytes (%) (Auto) 8.4L, Monocytes (%) (Auto) 7.0, Eosinophils (%) (Auto) 0.2, Basophils (%) (Auto) 0.8, Sodium Level 140, Potassium Level 3.8, Chloride Level 97L, Carbon Dioxide Level 32, Anion Gap 11, Blood Urea Nitrogen 61H, Creatinine 8.7H, Estimat Glomerular Filtration Rate 7.5, Glucose Level 232H, Uric Acid 4.9, Calcium Level 9.1, Phosphorus Level 5.4H, Magnesium Level 2.3, Total Bilirubin 1.2H, Direct Bilirubin 0.3, Gamma Glutamyl Transpeptidase 96H, Aspartate Amino Transf (AST/SGOT) 25, Alanine Aminotransferase (ALT/SGPT) 34, Alkaline Phosphatase 94, Troponin I 0.714H, C-Reactive Protein, Quantitative 13.5H, Pro-B-Type Natriuretic Peptide > 47211B, Total Protein 7.1, Albumin 2.9L , Globulin 4.2, Albumin/Globulin Ratio 0.7L Height (Feet): 5 Height (Inches): 7.00 Weight (Pounds): 190 General Appearance: no apparent distress Cardiovascular: tachycardia Respiratory/Chest: decreased breath sounds Objective no change in PE OUSMANE VALENTINE Jul 04, 2017 11:25
[2017-07-04] MEDS ORDERED: dilTIAZem HCl CD 120mg cap ORAL SCH (11:30)
[2017-07-04] MEDS ORDERED: Lisinopril 2.5mg tab ORAL SCH (11:30)
[2017-07-04 12:00] VITALS: BP 159/88
[2017-07-04] MEDS: Nitroglycerin Patch 0.2mg/hr TDERMAL SCH (12:45)
[2017-07-04] MEDS ORDERED: Lexiscan 0.4mg/5ml syringe IV ONE (14:30)
[2017-07-04 16:00] VITALS: BP 159/88
[2017-07-04 20:00] VITALS: BP 156/70
[2017-07-04] MEDS: Cefepime 500mg in D5W 55ml IVPB SCH (21:00)
[2017-07-04] MEDS: Iron Sucrose 100 MG in NS 55 ML IV SCH (23:03)
[2017-07-05] VITALS (8 sets, daily range): BP systolic 145–173; BP diastolic 72–87
--- NOTE | 2017-07-05 05:15 | Progress Note ---
DATE: 07/04/2017 CARDIOLOGY PROGRESS NOTE SUBJECTIVE: No chest pain. No shortness of breath. Slightly more energy. He is on hemodialysis with ultrafiltration. Troponin levels continue to remain elevated today at 0.714. PHYSICAL EXAMINATION: VITAL SIGNS: Blood pressure 159/88, pulse 75, respiratory rate 20, afebrile, and room air oxygen 96% saturation. LUNGS: Good breath sounds. HEART: Regular rhythm and rate. Normal S1, S2. ABDOMEN: Soft. No edema. Echocardiogram reveals ejection fraction of 35% with global hypokinesis. IMPRESSION: 1. End-stage renal disease. 2. Acute on chronic systolic and diastolic congestive heart failure. 3. Iron deficiency with anemia. 4. Anemia of chronic kidney disease. 5. Ischemic cardiomyopathy. 6. Acute myocardial infarction. PLAN: 1. Continue anti-platelet therapy. 2. Check lipid panel and consider statin drug. 3. Advance anti-failure regimen. 4. Check myocardial perfusion scan to assess for coronary flow reserve and reversibility. 5. Consideration for cardiac defibrillator in the medical terminologist. Gonzalo Salas M.D. DRLexi PEARSON JOB#: [id number] CC:
[2017-07-05] MEDS: NovoLOG Insulin Flexpen SUBQ SCH ×4 (06:30→22:18)
[2017-07-05 08:18] LABS: BASOPHILS % (AUTO) 0.7 % (0.0-2.0); EOSINOPHILS % (AUTO) 0.3 % (0.0-3.0); HEMATOCRIT 30.5 % (42.0-52.0); HEMOGLOBIN 9.6 G/DL (14.2-18.0); LYMPHOCYTES % (AUTO) 9.9 % (20.0-45.0); MEAN CORPUSCULAR VOLUME 88 FL (80-99); MONOCYTES % (AUTO) 10.6 % (1.0-10.0); NEUTROPHILS % (AUTO) 78.6 % (45.0-75.0); PLATELET COUNT 119 K/UL (150-450); RED BLOOD COUNT 3.47 M/UL (4.70-6.10); RED CELL DISTRIBUTION WIDTH 14.8 % (11.6-14.8); WHITE BLOOD COUNT 3.9 K/UL (4.8-10.8)
[2017-07-05 08:39] LABS: ALANINE AMINOTRANSFERASE 24 U/L (12-78); ALBUMIN 2.7 G/DL (3.4-5.0); ALBUMIN/GLOBULIN RATIO 0.7 (1.0-2.7); ALKALINE PHOSPHATASE 85 U/L (46-116); ANION GAP 11 mmol/L (5-15); ASPARTATE AMINO TRANSFERASE 24 U/L (15-37); BILIRUBIN,TOTAL 1.2 MG/DL (0.2-1.0); BLOOD UREA NITROGEN 83 mg/dL (7-18); CALCIUM 9.6 MG/DL (8.5-10.1); CARBON DIOXIDE 31 MMOL/L (21-32); CHLORIDE 98 MMOL/L (98-107); PHOSPHORUS 5.6 MG/DL (2.5-4.9); SODIUM 140 MMOL/L (136-145)
[2017-07-05 08:43] LABS: BILIRUBIN,DIRECT 0.3 MG/DL (0.0-0.3)
[2017-07-05] MEDS: Carvedilol 6.25mg Tab ORAL SCH ×2 (09:00→22:19)
[2017-07-05] MEDS: Heparin 5000 units/ml inj SUBQ SCH ×2 (09:00→21:00)
[2017-07-05] MEDS ORDERED: Lisinopril 20mg tab ORAL SCH (09:00)
[2017-07-05] MEDS: Docusate 100mg cap ORAL SCH ×3 (09:28→18:00)
[2017-07-05] MEDS: Aspirin Baby 81mg ORAL SCH (09:29)
[2017-07-05] MEDS: Renvela 800mg Pkt ORAL SCH ×3 (09:29→18:41)
--- NOTE | 2017-07-05 10:55 | Nephrology Progress Note ---
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 Fevers, nausea, and vomiting, possible gastroenteritis or other colitis. 2. Acute on chronic diastolic congestive heart failure. 3. Acute myocardial ischemia and possible gax-LM-woprnbops infarction. troponin rising 4. End-stage renal disease. last dialysed 06/29 5. Anemia of chronic kidney disease. 6. Type 2 diabetes mellitus. 7. Hypertensive heart disease, now with hypertensive urgency. Plan Plan: refuses ASA and Heparin !!! adjust BP meds and HR Add Zestril Coreg dose is upped next HD 07/05 IV iron and SQ EPO Renvela Antibiotics optimize cardiac and pulm status per orders Subjective ROS Limited/Unobtainable: No Constitutional: Reports: malaise Objective Objective Last 24 Hour Vital Signs Date Time Temp Pulse Resp B/P (MAP) Pulse Ox O2 Delivery O2 Flow Rate FiO2 07/05/17 04:00 68 07/05/17 04:00 97.7 71 21 145/72 90 07/05/17 00:00 83 07/05/17 00:00 98.2 80 21 156/76 90 07/04/17 23:05 81 156/70 07/04/17 20:00 98.6 81 21 156/70 90 07/04/17 20:00 79 07/04/17 16:00 75 07/04/17 16:00 98.2 100 20 159/88 96 Room Air 07/04/17 12:45 159/88 07/04/17 12:44 159/88 07/04/17 12:41 104 159/88 07/04/17 12:00 97.9 100 20 159/88 95 Room Air Intake and Output 07/04/17 07/05/17 19:00 07:00 Intake Total 360 ml Balance 360 ml Intake Oral 360 ml # Voids 1 # Bowel Movements 1 Laboratory Tests 07/05/17 07:20: White Blood Count 3.9L, Red Blood Count 3.47L, Hemoglobin 9.6L, Hematocrit 30.5L , Mean Corpuscular Volume 88, Mean Corpuscular Hemoglobin 27.8, Mean Corpuscular Hemoglobin Concent 31.6L, Red Cell Distribution Width 14.8, Platelet Count 119L, Mean Platelet Volume 8.5, Neutrophils (%) (Auto) 78.6H, Lymphocytes (%) (Auto) 9.9L, Monocytes (%) (Auto) 10.6H, Eosinophils (%) (Auto) 0.3, Basophils (%) (Auto) 0.7, Sodium Level 140, Potassium Level 4.0, Chloride Level 98, Carbon Dioxide Level 31, Anion Gap 11, Blood Urea Nitrogen 83H, Creatinine 11.0H, Estimat Glomerular Filtration Rate 5.7, Glucose Level 264H, Calcium Level 9.6, Phosphorus Level 5.6H, Magnesium Level 2.7H, Total Bilirubin 1.2H, Direct Bilirubin 0.3, Aspartate Amino Transf (AST/SGOT) 24, Alanine Aminotransferase (ALT/SGPT) 24, Alkaline Phosphatase 85, Troponin I 1.790H, C- Reactive Protein, Quantitative 14.6H, Pro-B-Type Natriuretic Peptide > 34062W, Total Protein 6.7, Albumin 2.7L, Globulin 4.0, Albumin/Globulin Ratio 0.7L Height (Feet): 5 Height (Inches): 7.00 Weight (Pounds): 190 General Appearance: no apparent distress Cardiovascular: normal rate Respiratory/Chest: decreased breath sounds Abdomen: soft Objective no change in PE OUSMANE VALENTINE Jul 05, 2017 10:55
[2017-07-05] MEDS: Imdur 30mg tab ORAL SCH (11:22)
--- NOTE | 2017-07-05 11:55 | Infectious Diseases Prog Note ---
Assessment/Plan Assessment/Plan antibiotics : cefepime A 1. fever improving 2. DM 3. HTN 4. renal failure P 1. d/c cefepime 2. observe off antibiotics Subjective Constitutional: Denies: fever, chills Respiratory: Denies: shortness of breath, dry cough Gastrointestinal/Abdominal: Denies: nausea, vomiting, diarrhea Musculoskeletal: Denies: pain Allergies: Coded Allergies: No Known Allergies (Unverified , 06/30/17) Objective Vital Signs Last 24 Hour Vital Signs Date Time Temp Pulse Resp B/P (MAP) Pulse Ox O2 Delivery O2 Flow Rate FiO2 07/05/17 11:22 154/73 07/05/17 08:00 73 07/05/17 08:00 97.8 72 18 154/73 90 Room Air 07/05/17 04:00 68 07/05/17 04:00 97.7 71 21 145/72 90 07/05/17 00:00 83 07/05/17 00:00 98.2 80 21 156/76 90 07/04/17 23:05 81 156/70 07/04/17 20:00 98.6 81 21 156/70 90 07/04/17 20:00 79 07/04/17 16:00 75 07/04/17 16:00 98.2 100 20 159/88 96 Room Air 07/04/17 12:45 159/88 07/04/17 12:44 159/88 07/04/17 12:41 104 159/88 07/04/17 12:00 97.9 100 20 159/88 95 Room Air Height (Feet): 5 Height (Inches): 7.00 Weight (Pounds): 190 Respiratory/Chest: lungs clear Cardiovascular: normal rate, regular rhythm, no gallop/murmur Abdomen: soft, non tender Extremities: no edema Laboratory Tests Test 07/05/17 07:20 White Blood Count 3.9 K/UL (4.8-10.8) L Red Blood Count 3.47 M/UL (4.70-6.10) L Hemoglobin 9.6 G/DL (14.2-18.0) L Hematocrit 30.5 % (42.0-52.0) L Mean Corpuscular Volume 88 FL (80-99) Mean Corpuscular Hemoglobin 27.8 PG (27.0-31.0) Mean Corpuscular Hemoglobin Concent 31.6 G/DL (32.0-36.0) L Red Cell Distribution Width 14.8 % (11.6-14.8) Platelet Count 119 K/UL (150-450) L Mean Platelet Volume 8.5 FL (6.5-10.1) Neutrophils (%) (Auto) 78.6 % (45.0-75.0) H Lymphocytes (%) (Auto) 9.9 % (20.0-45.0) L Monocytes (%) (Auto) 10.6 % (1.0-10.0) H Eosinophils (%) (Auto) 0.3 % (0.0-3.0) Basophils (%) (Auto) 0.7 % (0.0-2.0) Sodium Level 140 MMOL/L (136-145) Potassium Level 4.0 MMOL/L (3.5-5.1) Chloride Level 98 MMOL/L (98-107) Carbon Dioxide Level 31 MMOL/L (21-32) Anion Gap 11 mmol/L (5-15) Blood Urea Nitrogen 83 mg/dL (7-18) H Creatinine 11.0 MG/DL (0.55-1.30) H Estimat Glomerular Filtration Rate 5.7 mL/min (>60) Glucose Level 264 MG/DL (74-106) H Calcium Level 9.6 MG/DL (8.5-10.1) Phosphorus Level 5.6 MG/DL (2.5-4.9) H Magnesium Level 2.7 MG/DL (1.8-2.4) H Total Bilirubin 1.2 MG/DL (0.2-1.0) H Direct Bilirubin 0.3 MG/DL (0.0-0.3) Aspartate Amino Transf (AST/SGOT) 24 U/L (15-37) Alanine Aminotransferase (ALT/SGPT) 24 U/L (12-78) Alkaline Phosphatase 85 U/L (46-116) Troponin I 1.790 ng/mL (0.000-0.056) C-Reactive Protein, Quantitative 14.6 mg/dL (0.00-0.90) H Pro-B-Type Natriuretic Peptide > 81059 pg/mL (0-125) H Total Protein 6.7 G/DL (6.4-8.2) Albumin 2.7 G/DL (3.4-5.0) L Globulin 4.0 g/dL Albumin/Globulin Ratio 0.7 (1.0-2.7) L MADISON CAI Jul 05, 2017 11:55
[2017-07-05] MEDS: Nitroglycerin Patch 0.2mg/hr TDERMAL SCH (12:27)
--- NOTE | 2017-07-05 14:30 | Diagnostic Imaging Report ---
Indication: chest pain Technique: The study was conducted under the supervision of a classified advertising supervisor. lexiscan (regadenoson) infusion over 10 seconds followed by intravenous administration of 28.5 mCi of technetium 99m Myoview was performed. Three plane SPECT imaging of the heart was then performed. A resting study was performed as part of the one-day protocol with 30.1 mCi of technetium 99m myoview injected intravenously at that time. Three plane SPECT imaging of the heart was obtained. Comparison: None Clinical data: 1. Clinical response: Non ischemic 2. Electrocardiographic response: Non ischemic Findings: The myocardial perfusion scan demonstrates dilated left ventricular chamber. There is a fixed perfusion defect involving the inferior wall consistent with a myocardial infarct. This extends into the left ventricular apex. There is also a nontransmural fixed perfusion defect involving the mid and proximal part of the anterior wall extending into the anteroseptal segment. This may be partially reversible and is probably reflective of an infarct with vibha-infarct ischemia. Please correlate clinically. LVEF is estimated at 27%. IMPRESSION: Fixed perfusion defects involving the inferior wall/apex, anterior wall and anteroseptal segment. Findings consistent with myocardial infarcts. The anteroseptal segment may be partially reversible likely vibha-infarct ischemia. Left ventricular dilatation with low LVEF of 27%
[2017-07-05] MEDS: Epogen (for ESRD on dialysis) SUBQ SCH (22:15)
[2017-07-05] MEDS: Iron Sucrose 100 MG in NS 55 ML IV SCH (22:15)
[2017-07-06] VITALS: BP 176/86
[2017-07-06 04:00] VITALS: BP 150/83
[2017-07-06] MEDS: NovoLOG Insulin Flexpen SUBQ SCH ×4 (07:07→20:46)
[2017-07-06 08:00] VITALS: BP 185/93
--- NOTE | 2017-07-06 08:30 | Progress Note ---
DATE: 07/05/2017 CARDIOLOGY PROGRESS NOTE SUBJECTIVE: The patient without chest pain. No shortness of breath. Anxious to go home. Still feels weak with limited energy and for activities. OBJECTIVE: VITAL SIGNS: Blood pressure 157/87, pulse 81, respiratory rate 20, and afebrile. NECK: Supple. LUNGS: Clear. CARDIAC: Regular rhythm and rate. Normal S1, S2 with a fourth heart sound. ABDOMEN: Soft. EXTREMITIES: No edema. LABORATORY DATA: Troponin levels are above 1. IMPRESSION: 1. Acute myocardial infarction. 2. Ischemic cardiomyopathy. 3. End-stage renal disease. 4. Hypertensive heart disease with accelerated blood pressure. 5. Acute on chronic systolic congestive heart failure. PLAN: 1. Myocardial perfusion scan. 2. Hemodialysis with ultrafiltration. 3. Titrate antihypertensives. 4. Discharge planning to follow. 5. Follow up lipid panel results. 6. Long-term consideration for defibrillator. Gonzalo Salas M.D. DR: RADHA JOB#: [id number] CC:
[2017-07-06] MEDS: Heparin 5000 units/ml inj SUBQ SCH ×2 (09:00→21:02)
[2017-07-06] MEDS: Aspirin Baby 81mg ORAL SCH (09:00)
--- NOTE | 2017-07-06 09:00 | Progress Note ---
DATE: 07/06/2017 CARDIOLOGY PROGRESS NOTE SUBJECTIVE: Myocardial perfusion scan performed yesterday reveals low ejection fraction less than 30%. Diffuse regions of infarct. Minimal reversibility in the septum in a vibha-infarct region. OBJECTIVE: VITAL SIGNS: Blood pressure trend increased. NECK: Supple. LUNGS: Clear. CARDIAC: Regular rhythm and rate. Normal S1, S2 with a fourth heart sound and a 1/6 apical murmur. ABDOMEN: Soft. EXTREMITIES: No edema. IMPRESSION: 1. End-stage renal disease. 2. Ischemic cardiomyopathy. 3. Acute myocardial infraction. 4. Acute on chronic systolic congestive heart failure. 5. Accelerated hypertension. 6. Anemia of chronic kidney disease with iron deficiency. PLAN: Continue Epogen and iron supplement, hemodialysis with ultrafiltration three times a week. Maximize anti-failure and antihypertensive therapy. Long-term consideration for defibrillator implant for primary prevention. Discharge planning. Gonzalo Salas M.D. DR: GILDA/PADDY JOB#: [id number] CC:
[2017-07-06] MEDS: Imdur 30mg tab ORAL SCH (09:51)
[2017-07-06] MEDS: Carvedilol 6.25mg Tab ORAL SCH ×2 (09:51→20:46)
[2017-07-06] MEDS: Lisinopril 20mg tab ORAL SCH (09:52)
[2017-07-06] MEDS: Docusate 100mg cap ORAL SCH ×3 (09:52→18:47)
[2017-07-06] MEDS: Renvela 800mg Pkt ORAL SCH ×3 (09:52→18:47)
--- NOTE | 2017-07-06 11:55 | Nephrology Progress Note ---
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 Fevers, nausea, and vomiting, possible gastroenteritis or other colitis. 2. Acute on chronic diastolic congestive heart failure. 3. Acute myocardial ischemia and possible gyc-PF-qykgxdbvh infarction. troponin rising 4. End-stage renal disease. 5. Anemia of chronic kidney disease. 6. Type 2 diabetes mellitus. 7. Hypertensive heart disease, now with hypertensive urgency. Plan Plan: refuses ASA and Heparin !!! Uncoaporative with taking meds adjust BP meds and HR Add Zestril Coreg dose is upped next HD 07/07 IV iron and SQ EPO Renvela Antibiotics optimize cardiac and pulm status per orders Subjective ROS Limited/Unobtainable: No Constitutional: Reports: malaise, weakness Objective Objective Last 24 Hour Vital Signs Date Time Temp Pulse Resp B/P (MAP) Pulse Ox O2 Delivery O2 Flow Rate FiO2 07/06/17 09:53 95 185/93 07/06/17 09:52 185/93 07/06/17 09:51 185/93 07/06/17 09:51 95 185/93 07/06/17 08:00 97.7 95 20 185/93 93 07/06/17 04:00 86 07/06/17 04:00 97.0 82 18 150/83 91 07/06/17 00:00 79 07/06/17 00:00 97.7 85 20 176/86 90 07/05/17 22:19 83 158/83 07/05/17 20:00 86 07/05/17 20:00 98.2 83 20 158/83 90 07/05/17 18:45 Room Air 07/05/17 18:45 97.8 81 20 157/87 Room Air 07/05/17 16:00 97.6 75 19 158/83 94 Room Air 07/05/17 16:00 79 07/05/17 14:00 Room Air 07/05/17 14:00 97.3 77 20 152/79 Room Air 07/05/17 12:27 173/86 07/05/17 12:00 75 07/05/17 12:00 98.1 78 19 173/86 95 Room Air Intake and Output 07/05/17 07/06/17 19:00 07:00 Intake Total 472 ml Output Total 2000 ml Balance -1528 ml Intake Oral 472 ml Hemodialysis UF 2000 ml # Voids 2 # Bowel Movements 1 3 Height (Feet): 5 Height (Inches): 7.00 Weight (Pounds): 190 General Appearance: no apparent distress, lethargic Respiratory/Chest: decreased breath sounds Abdomen: soft Objective no change in PE OUSMANE VALENTINE Jul 06, 2017 11:55
[2017-07-06 12:00] VITALS: BP 157/94
[2017-07-06] MEDS: Nitroglycerin Patch 0.2mg/hr TDERMAL SCH (12:34)
[2017-07-06 16:00] VITALS: BP 152/82
[2017-07-06] MEDS: Levemir Flexpen SUBQ SCH (18:49)
--- NOTE | 2017-07-06 19:39 | General Progress Note ---
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 and stage 5 chronic kidney disease on chronic dialysis ICD Codes: I13.2 - Hypertensive heart and chronic kidney disease with heart failure and with stage 5 chronic kidney disease, or end stage renal disease; I50.83 - High output heart failure; N18.6 - End stage renal disease; Z99.2 - Dependence on renal dialysis SNOMED: 79296762, 676629858, [id number] Status: stable, progressing Assessment/Plan HD per renal o2 resp care cxr dc planning tomorrow after HD Subjective ROS Limited/Unobtainable: No Constitutional: Reports: malaise, weakness HEENT: Reports: no symptoms Cardiovascular: Reports: no symptoms Respiratory: Reports: cough, shortness of breath Gastrointestinal/Abdominal: Reports: no symptoms Genitourinary: Reports: no symptoms Neurologic/Psychiatric: Reports: no symptoms Endocrine: Reports: no symptoms Hematologic/Lymphatic: Reports: no symptoms Allergies: Coded Allergies: No Known Allergies (Unverified , 06/30/17) All Systems: reviewed and negative except above Subjective c/o weakness. Sob improving but pt not at baseline. Objective Last 24 Hour Vital Signs Date Time Temp Pulse Resp B/P (MAP) Pulse Ox O2 Delivery O2 Flow Rate FiO2 07/06/17 17:24 78 07/06/17 16:00 97.9 76 20 152/82 98 07/06/17 12:34 157/94 07/06/17 12:00 87 07/06/17 12:00 97.5 85 20 157/94 95 07/06/17 09:53 95 185/93 07/06/17 09:52 185/93 07/06/17 09:51 185/93 07/06/17 09:51 95 185/93 07/06/17 08:00 97.7 95 20 185/93 93 07/06/17 08:00 92 07/06/17 08:00 87 07/06/17 04:00 86 07/06/17 04:00 97.0 82 18 150/83 91 07/06/17 00:00 79 07/06/17 00:00 97.7 85 20 176/86 90 07/05/17 22:19 83 158/83 07/05/17 20:00 86 07/05/17 20:00 98.2 83 20 158/83 90 Intake and Output 07/05/17 07/06/17 19:00 07:00 Intake Total 472 ml Output Total 2000 ml Balance -1528 ml Intake Oral 472 ml Hemodialysis UF 2000 ml # Voids 2 # Bowel Movements 1 3 Height (Feet): 5 Height (Inches): 7.00 Weight (Pounds): 190 General Appearance: WD/WN, alert Neck: supple Cardiovascular: normal rate Respiratory/Chest: lungs clear, normal breath sounds, no respiratory distress Abdomen: normal bowel sounds, non tender, soft, no organomegaly Edema: no edema noted Arm (L), no edema noted Arm (R), no edema noted Leg (L), no edema noted Leg (R), no edema noted Pedal (L), no edema noted Pedal (R), no edema noted Generalized Neurologic: web master II-XII grossly normal, alert, oriented x 3, responsive CHIOMA AKHTAR Jul 06, 2017 19:39
[2017-07-06 20:00] VITALS: BP 143/69
[2017-07-07] VITALS: BP_SYST 136; BP_SYST 166; BP_DIAS 71; BP_DIAS 88
[2017-07-07] MEDS: Tums 500mg ORAL PRN (03:09)
[2017-07-07] MEDS: Iron Sucrose 100 MG in NS 55 ML IV SCH ×2 (03:12→21:17)
[2017-07-07 04:00] VITALS: BP 166/88
[2017-07-07] MEDS: NovoLOG Insulin Flexpen SUBQ SCH ×4 (07:12→21:20)
[2017-07-07 07:39] LABS: BASOPHILS % (AUTO) 0.6 % (0.0-2.0); EOSINOPHILS % (AUTO) 0.7 % (0.0-3.0); HEMOGLOBIN 9.2 G/DL (14.2-18.0); LYMPHOCYTES % (AUTO) 8.1 % (20.0-45.0); MEAN CORPUSCULAR VOLUME 89 FL (80-99); MONOCYTES % (AUTO) 6.5 % (1.0-10.0); NEUTROPHILS % (AUTO) 84.2 % (45.0-75.0); PLATELET COUNT 184 K/UL (150-450); RED BLOOD COUNT 3.27 M/UL (4.70-6.10); RED CELL DISTRIBUTION WIDTH 15.2 % (11.6-14.8)
[2017-07-07 08:00] VITALS: BP 164/78
[2017-07-07 08:20] LABS: ALANINE AMINOTRANSFERASE 23 U/L (12-78); ALBUMIN 2.8 G/DL (3.4-5.0); ALBUMIN/GLOBULIN RATIO 0.8 (1.0-2.7); ALKALINE PHOSPHATASE 79 U/L (46-116); ANION GAP 12 mmol/L (5-15); ASPARTATE AMINO TRANSFERASE 21 U/L (15-37); BILIRUBIN,TOTAL 1.4 MG/DL (0.2-1.0); BLOOD UREA NITROGEN 89 mg/dL (7-18); CALCIUM 10.1 MG/DL (8.5-10.1); CARBON DIOXIDE 32 MMOL/L (21-32); CHLORIDE 95 MMOL/L (98-107); CREATININE 11.5 MG/DL (0.55-1.30); PHOSPHORUS 6.2 MG/DL (2.5-4.9); POTASSIUM 4.1 MMOL/L (3.5-5.1); SODIUM 139 MMOL/L (136-145)
[2017-07-07 08:21] LABS: BILIRUBIN,DIRECT 0.4 MG/DL (0.0-0.3)
--- NOTE | 2017-07-07 08:35 | Infectious Diseases Prog Note ---
Assessment/Plan Assessment/Plan A 1. fever resolved 2. ? pneumonia 3. DM 4. HPN 5. renal failure, ESRD P 1. observe off antibiotic Subjective ROS Limited/Unobtainable: No Constitutional: Reports: no symptoms Respiratory: Reports: dry cough Cardiovascular: Reports: no symptoms Gastrointestinal/Abdominal: Reports: no symptoms Allergies: Coded Allergies: No Known Allergies (Unverified , 06/30/17) Objective Vital Signs Last 24 Hour Vital Signs Date Time Temp Pulse Resp B/P (MAP) Pulse Ox O2 Delivery O2 Flow Rate FiO2 07/07/17 04:00 98.2 75 20 166/88 94 07/07/17 04:00 76 07/07/17 00:00 97.3 64 18 136/71 96 07/07/17 00:00 76 07/06/17 20:46 75 143/69 07/06/17 20:00 70 07/06/17 20:00 97.5 75 18 143/69 96 07/06/17 17:24 78 07/06/17 16:00 97.9 76 20 152/82 98 07/06/17 12:34 157/94 07/06/17 12:00 87 07/06/17 12:00 97.5 85 20 157/94 95 07/06/17 09:53 95 185/93 07/06/17 09:52 185/93 07/06/17 09:51 185/93 07/06/17 09:51 95 185/93 Height (Feet): 5 Height (Inches): 7.00 Weight (Pounds): 190 General Appearance: no acute distress HEENT: mucous membranes moist Respiratory/Chest: lungs clear Cardiovascular: normal rate Abdomen: soft, non tender Extremities: no edema Neurologic/Psychiatric: alert, oriented x 3, responsive Laboratory Tests Test 07/07/17 05:20 White Blood Count 7.0 K/UL (4.8-10.8) Red Blood Count 3.27 M/UL (4.70-6.10) L Hemoglobin 9.2 G/DL (14.2-18.0) L Hematocrit 29.0 % (42.0-52.0) L Mean Corpuscular Volume 89 FL (80-99) Mean Corpuscular Hemoglobin 28.2 PG (27.0-31.0) Mean Corpuscular Hemoglobin Concent 31.8 G/DL (32.0-36.0) L Red Cell Distribution Width 15.2 % (11.6-14.8) H Platelet Count 184 K/UL (150-450) Mean Platelet Volume 7.9 FL (6.5-10.1) Neutrophils (%) (Auto) 84.2 % (45.0-75.0) H Lymphocytes (%) (Auto) 8.1 % (20.0-45.0) L Monocytes (%) (Auto) 6.5 % (1.0-10.0) Eosinophils (%) (Auto) 0.7 % (0.0-3.0) Basophils (%) (Auto) 0.6 % (0.0-2.0) Sodium Level 139 MMOL/L (136-145) Potassium Level 4.1 MMOL/L (3.5-5.1) Chloride Level 95 MMOL/L (98-107) L Carbon Dioxide Level 32 MMOL/L (21-32) Anion Gap 12 mmol/L (5-15) Blood Urea Nitrogen 89 mg/dL (7-18) H Creatinine 11.5 MG/DL (0.55-1.30) H Estimat Glomerular Filtration Rate 5.5 mL/min (>60) Glucose Level 242 MG/DL (74-106) H Calcium Level 10.1 MG/DL (8.5-10.1) Phosphorus Level 6.2 MG/DL (2.5-4.9) H Magnesium Level 2.7 MG/DL (1.8-2.4) H Total Bilirubin 1.4 MG/DL (0.2-1.0) H Direct Bilirubin 0.4 MG/DL (0.0-0.3) H Aspartate Amino Transf (AST/SGOT) 21 U/L (15-37) Alanine Aminotransferase (ALT/SGPT) 23 U/L (12-78) Alkaline Phosphatase 79 U/L (46-116) Troponin I 1.037 ng/mL (0.000-0.056) C-Reactive Protein, Quantitative 11.8 mg/dL (0.00-0.90) H Pro-B-Type Natriuretic Peptide > 37903 pg/mL (0-125) H Total Protein 6.3 G/DL (6.4-8.2) L Albumin 2.8 G/DL (3.4-5.0) L Globulin 3.5 g/dL Albumin/Globulin Ratio 0.8 (1.0-2.7) L Current Medications Medications (Trade) Dose Ordered Sig/Leida Route PRN Reason Start Time Stop Time Status Last Admin Dose Admin Amlodipine Besylate (Norvasc) 5 mg DAILY ORAL 07/06/17 09:00 08/05/17 08:59 07/06/17 09:53 Aspirin (ASA) 325 mg DAILY ORAL 07/05/17 09:00 08/04/17 08:59 07/05/17 09:29 Calcium Carbonate (Tums) 500 mg Q3H PRN ORAL Abdominal cramps 07/06/17 16:30 08/05/17 16:29 07/07/17 03:09 Carvedilol (Coreg) 25 mg EVERY 12 HOURS ORAL 07/05/17 09:00 08/04/17 08:59 07/06/17 20:46 Clonidine HCl (Catapres) 0.1 mg Q4H PRN ORAL SBP above 160 07/01/17 16:00 07/31/17 15:59 07/04/17 00:07 Dextrose (Dextrose 50%) STAT PRN IV Hypoglycemia 07/01/17 02:00 07/31/17 01:59 Docusate Sodium (Colace) 100 mg THREE TIMES A DAY ORAL 07/02/17 13:00 08/01/17 12:59 07/06/17 18:47 Epoetin Lizandro (Procrit (for ESRD on dialysis)) 10,000 units MON-SAT-SAT SUBQ 07/03/17 21:00 08/02/17 20:59 07/05/17 22:15 Heparin Sodium (Porcine) (Heparin 5000 units/ml) 5,000 units EVERY 12 HOURS SUBQ 07/01/17 21:00 07/31/17 20:59 07/06/17 21:02 Insulin Aspart (NovoLOG) BEFORE MEALS AND HS SUBQ 07/01/17 06:30 07/31/17 06:29 07/07/17 07:12 Insulin Detemir (Levemir) 4 units BID SUBQ 07/06/17 18:00 08/05/17 17:59 07/06/17 18:49 Iron Sucrose 100 mg/Sodium Chloride 60 ml @ 240 mls/hr BEDTIME IV 07/03/17 21:00 07/07/17 21:14 07/07/17 03:12 Isosorbide Mononitrate (Imdur) 60 mg DAILY ORAL 07/05/17 10:00 08/04/17 09:59 07/06/17 09:51 Lisinopril (Prinivil) 40 mg DAILY ORAL 07/06/17 09:00 08/05/17 08:59 07/06/17 09:52 Nitroglycerin (Ntg) 1 patch Q24H TDERMAL 07/04/17 12:00 08/03/17 11:59 07/06/17 12:34 Ondansetron HCl (Zofran) 4 mg Q6H PRN IVP Nausea & Vomiting 07/01/17 02:00 07/31/17 01:59 07/02/17 22:13 Sevelamer Carbonate (Renvela) 1,600 mg THREE TIMES A DAY ORAL 07/03/17 18:00 08/02/17 17:59 07/06/17 18:47 MILAGRO LOCKHART Jul 07, 2017 08:34
[2017-07-07] MEDS: Imdur 30mg tab ORAL SCH (08:49)
[2017-07-07] MEDS: Docusate 100mg cap ORAL SCH ×3 (08:50→14:06)
[2017-07-07] MEDS: Renvela 800mg Pkt ORAL SCH ×3 (08:50→19:09)
[2017-07-07] MEDS: Carvedilol 6.25mg Tab ORAL SCH ×2 (08:50→21:18)
[2017-07-07] MEDS: Lisinopril 20mg tab ORAL SCH (08:50)
[2017-07-07] MEDS: Aspirin Baby 81mg ORAL SCH ×2 (08:51→09:00)
[2017-07-07] MEDS: Heparin 5000 units/ml inj SUBQ SCH ×2 (08:56→21:19)
[2017-07-07] MEDS: Levemir Flexpen SUBQ SCH ×2 (08:56→19:12)
--- NOTE | 2017-07-07 08:58 | General Progress Note ---
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 ICD Codes: I13.2 - Hypertensive heart and chronic kidney disease with heart failure and with stage 5 chronic kidney disease, or end stage renal disease; I50.83 - High output heart failure; N18.6 - End stage renal disease; Z99.2 - Dependence on renal dialysis SNOMED: 23998477, 391041938, [id number] Assessment/Plan HD per renal o2 resp care cxr added tums for heartburn added levemir bid dc planning if cxr ok, blood sugar better and cleared by pt/ot Subjective ROS Limited/Unobtainable: No Constitutional: Reports: malaise, weakness HEENT: Reports: no symptoms Cardiovascular: Reports: no symptoms Respiratory: Reports: no symptoms Gastrointestinal/Abdominal: Reports: abdominal pain Genitourinary: Reports: no symptoms Neurologic/Psychiatric: Reports: no symptoms Endocrine: Reports: no symptoms Hematologic/Lymphatic: Reports: no symptoms Allergies: Coded Allergies: No Known Allergies (Unverified , 06/30/17) All Systems: reviewed and negative except above Subjective c/o weakness. Sob improving but pt not at baseline. elevated BS 300s last night. pt does not remember how much insulin he was on at home. c/o "heartburn. " Objective Last 24 Hour Vital Signs Date Time Temp Pulse Resp B/P (MAP) Pulse Ox O2 Delivery O2 Flow Rate FiO2 07/07/17 04:00 98.2 75 20 166/88 94 07/07/17 04:00 76 07/07/17 00:00 97.3 64 18 136/71 96 07/07/17 00:00 76 07/06/17 20:46 75 143/69 07/06/17 20:00 70 07/06/17 20:00 97.5 75 18 143/69 96 07/06/17 17:24 78 07/06/17 16:00 97.9 76 20 152/82 98 07/06/17 12:34 157/94 07/06/17 12:00 87 07/06/17 12:00 97.5 85 20 157/94 95 07/06/17 09:53 95 185/93 07/06/17 09:52 185/93 07/06/17 09:51 185/93 07/06/17 09:51 95 185/93 Intake and Output 07/06/17 07/07/17 19:00 07:00 Intake Total 240 ml 120 ml Balance 240 ml 120 ml Intake Oral 240 ml 120 ml # Bowel Movements 2 Laboratory Tests 07/07/17 05:20: White Blood Count 7.0, Red Blood Count 3.27L, Hemoglobin 9.2L, Hematocrit 29.0L , Mean Corpuscular Volume 89, Mean Corpuscular Hemoglobin 28.2, Mean Corpuscular Hemoglobin Concent 31.8L, Red Cell Distribution Width 15.2H, Platelet Count 184, Mean Platelet Volume 7.9, Neutrophils (%) (Auto) 84.2H, Lymphocytes (%) (Auto) 8.1L, Monocytes (%) (Auto) 6.5, Eosinophils (%) (Auto) 0.7, Basophils (%) (Auto) 0.6, Sodium Level 139, Potassium Level 4.1, Chloride Level 95L, Carbon Dioxide Level 32, Anion Gap 12, Blood Urea Nitrogen 89H, Creatinine 11.5H, Estimat Glomerular Filtration Rate 5.5, Glucose Level 242H, Calcium Level 10.1, Phosphorus Level 6.2H, Magnesium Level 2.7H, Total Bilirubin 1.4H, Direct Bilirubin 0.4H, Aspartate Amino Transf (AST/SGOT) 21, Alanine Aminotransferase (ALT/SGPT) 23, Alkaline Phosphatase 79, Troponin I 1.037H, C-Reactive Protein, Quantitative 11.8H, Pro-B-Type Natriuretic Peptide > 92763E, Total Protein 6.3L, Albumin 2.8L, Globulin 3.5, Albumin/Globulin Ratio 0.8L Height (Feet): 5 Height (Inches): 7.00 Weight (Pounds): 190 Objective General Appearance: WD/WN, alert Neck: supple Cardiovascular: normal rate Respiratory/Chest: lungs clear, normal breath sounds, no respiratory distress Abdomen: normal bowel sounds, non tender, soft, no organomegaly Edema: no edema noted Arm (L), no edema noted Arm (R), no edema noted Leg (L), no edema noted Leg (R), no edema noted Pedal (L), no edema noted Pedal (R), no edema noted Generalized Neurologic: manager market development II-XII grossly normal, alert, oriented x 3, responsive CHIOMA AKHTAR Jul 07, 2017 08:58
[2017-07-07] MEDS ORDERED: Norco 5mg/325mg tab ORAL PRN (10:15)
--- NOTE | 2017-07-07 10:36 | Nephrology Progress Note ---
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 Fevers, nausea, and vomiting, possible gastroenteritis or other colitis. 2. Acute on chronic diastolic congestive heart failure. 3. Acute myocardial ischemia and possible [id number] infarction. troponin rising 4. End-stage renal disease. 5. Anemia of chronic kidney disease. 6. Type 2 diabetes mellitus. 7. Hypertensive heart disease, now with hypertensive urgency. Plan Plan: refuses ASA and Heparin !!! Uncoaporative with taking meds adjust BP meds and HR increase Norvasc next HD 07/07 today IV iron and SQ EPO increase Renvela Antibiotics optimize cardiac and pulm status per orders Subjective ROS Limited/Unobtainable: No Constitutional: Reports: malaise Objective Objective Last 24 Hour Vital Signs Date Time Temp Pulse Resp B/P (MAP) Pulse Ox O2 Delivery O2 Flow Rate FiO2 07/07/17 08:51 76 164/78 07/07/17 08:50 164/78 07/07/17 08:50 76 164/78 07/07/17 08:49 164/78 07/07/17 04:00 98.2 75 20 166/88 94 07/07/17 04:00 76 07/07/17 00:00 97.3 64 18 136/71 96 07/07/17 00:00 76 07/06/17 20:46 75 143/69 07/06/17 20:00 70 07/06/17 20:00 97.5 75 18 143/69 96 07/06/17 17:24 78 07/06/17 16:00 97.9 76 20 152/82 98 07/06/17 12:34 157/94 07/06/17 12:00 87 07/06/17 12:00 97.5 85 20 157/94 95 Intake and Output 07/06/17 07/07/17 19:00 07:00 Intake Total 240 ml 120 ml Balance 240 ml 120 ml Intake Oral 240 ml 120 ml # Bowel Movements 2 Laboratory Tests 07/07/17 05:20: White Blood Count 7.0, Red Blood Count 3.27L, Hemoglobin 9.2L, Hematocrit 29.0L , Mean Corpuscular Volume 89, Mean Corpuscular Hemoglobin 28.2, Mean Corpuscular Hemoglobin Concent 31.8L, Red Cell Distribution Width 15.2H, Platelet Count 184, Mean Platelet Volume 7.9, Neutrophils (%) (Auto) 84.2H, Lymphocytes (%) (Auto) 8.1L, Monocytes (%) (Auto) 6.5, Eosinophils (%) (Auto) 0.7, Basophils (%) (Auto) 0.6, Sodium Level 139, Potassium Level 4.1, Chloride Level 95L, Carbon Dioxide Level 32, Anion Gap 12, Blood Urea Nitrogen 89H, Creatinine 11.5H, Estimat Glomerular Filtration Rate 5.5, Glucose Level 242H, Calcium Level 10.1, Phosphorus Level 6.2H, Magnesium Level 2.7H, Total Bilirubin 1.4H, Direct Bilirubin 0.4H, Aspartate Amino Transf (AST/SGOT) 21, Alanine Aminotransferase (ALT/SGPT) 23, Alkaline Phosphatase 79, Troponin I 1.037H, C-Reactive Protein, Quantitative 11.8H, Pro-B-Type Natriuretic Peptide > 11868L, Total Protein 6.3L, Albumin 2.8L, Globulin 3.5, Albumin/Globulin Ratio 0.8L Height (Feet): 5 Height (Inches): 7.00 Weight (Pounds): 190 General Appearance: no apparent distress Objective no change in PE OUSMANE VALENTINE Jul 07, 2017 10:36
[2017-07-07 12:00] VITALS: BP 157/80
[2017-07-07] MEDS: Nitroglycerin Patch 0.2mg/hr TDERMAL SCH (12:00)
--- NOTE | 2017-07-07 13:49 | Diagnostic Imaging Report ---
Indication: Chest paipn Technique: XRAY Chest 1v Comparison: 07/02/2017 Findings: Stable cardiomegaly. There is interval increased haziness of the pulmonary vascularity suggestive of mild interstitial edema/opacification. There is patchy retrocardiac atelectasis. No pleural effusion. No pneumothorax. No acute osseous abnormality seen. Impression: Interval removal of mild interstitial opacification/edema and patchy retrocardiac atelectasis.
[2017-07-07 16:00] VITALS: BP 147/73
[2017-07-07] MEDS ORDERED: NS 500ML ONE (16:14)
[2017-07-07 20:00] VITALS: BP 135/69
[2017-07-08] VITALS: BP 151/74
[2017-07-08] MEDS: Tums 500mg ORAL PRN ×2 (02:36→23:02)
[2017-07-08 04:56] VITALS: BP 160/85
[2017-07-08] MEDS: NovoLOG Insulin Flexpen SUBQ SCH ×4 (06:55→22:00)
--- NOTE | 2017-07-08 07:57 | General Progress Note ---
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 ICD Codes: I13.2 - Hypertensive heart and chronic kidney disease with heart failure and with stage 5 chronic kidney disease, or end stage renal disease; I50.83 - High output heart failure; N18.6 - End stage renal disease; Z99.2 - Dependence on renal dialysis SNOMED: 67624809, 297145822, [id number] Status: stable, progressing Assessment/Plan HD per renal o2 resp care cxr added tums for heartburn monitor bs check room air o2 sat may need home o2 Subjective ROS Limited/Unobtainable: No Constitutional: Reports: malaise, weakness HEENT: Reports: no symptoms Cardiovascular: Reports: no symptoms Respiratory: Reports: cough, shortness of breath Gastrointestinal/Abdominal: Reports: no symptoms Genitourinary: Reports: no symptoms Neurologic/Psychiatric: Reports: no symptoms Endocrine: Reports: no symptoms Hematologic/Lymphatic: Reports: no symptoms Allergies: Coded Allergies: No Known Allergies (Unverified , 06/30/17) All Systems: reviewed and negative except above Subjective c/o weakness. Sob improving but pt not at baseline. elevated BS 300s last night. pt does not remember how much insulin he was on at home. c/o "heartburn. " cxr from 07/06 better. still on o2 Objective Last 24 Hour Vital Signs Date Time Temp Pulse Resp B/P (MAP) Pulse Ox O2 Delivery O2 Flow Rate FiO2 07/08/17 04:56 97.3 73 18 160/85 97 Room Air 07/08/17 04:00 68 07/08/17 00:00 68 07/08/17 00:00 97.6 71 18 151/74 96 Room Air 07/07/17 21:18 74 135/69 07/07/17 20:00 70 07/07/17 20:00 98.2 74 18 135/69 95 Nasal Cannula 07/07/17 19:10 66 147/73 07/07/17 17:59 Nasal Cannula 07/07/17 16:00 97.7 66 20 147/73 96 07/07/17 16:00 70 07/07/17 14:30 Nasal Cannula 07/07/17 12:00 157/80 07/07/17 12:00 78 07/07/17 12:00 98.2 76 20 157/80 98 07/07/17 08:51 76 164/78 07/07/17 08:50 164/78 07/07/17 08:50 76 164/78 07/07/17 08:49 164/78 07/07/17 08:00 76 07/07/17 08:00 97.0 75 20 164/78 93 Intake and Output 07/07/17 07/08/17 19:00 07:00 Intake Total 120 ml Output Total 3200 ml 100 ml Balance -3080 ml -100 ml Intake Oral 120 ml Output Urine Total 100 ml Hemodialysis UF 3200 ml Height (Feet): 5 Height (Inches): 7.00 Weight (Pounds): 190 Objective General Appearance: WD/WN, alert Neck: supple Cardiovascular: normal rate Respiratory/Chest: lungs clear, normal breath sounds, no respiratory distress Abdomen: normal bowel sounds, non tender, soft, no organomegaly Edema: no edema noted Arm (L), no edema noted Arm (R), no edema noted Leg (L), no edema noted Leg (R), no edema noted Pedal (L), no edema noted Pedal (R), no edema noted Generalized Neurologic: county manager II-XII grossly normal, alert, oriented x 3, responsive CHIOMA AKHTAR Jul 08, 2017 07:57
[2017-07-08 08:00] VITALS: BP 155/67
[2017-07-08] MEDS: Docusate 100mg cap ORAL SCH ×4 (09:00→18:00)
[2017-07-08] MEDS: Heparin 5000 units/ml inj SUBQ SCH ×3 (09:00→22:00)
[2017-07-08] MEDS: Aspirin Baby 81mg ORAL SCH ×2 (09:00→10:22)
--- NOTE | 2017-07-08 09:11 | Infectious Diseases Prog Note ---
Assessment/Plan Assessment/Plan A 1. fever resolved 2. ? pneumonia 3. DM 4. HPN 5. renal failure, ESRD P 1. observe off antibiotic Subjective ROS Limited/Unobtainable: No Constitutional: Reports: no symptoms Respiratory: Reports: no symptoms Gastrointestinal/Abdominal: Reports: no symptoms Genitourinary: Reports: no symptoms Allergies: Coded Allergies: No Known Allergies (Unverified , 06/30/17) Objective Vital Signs Last 24 Hour Vital Signs Date Time Temp Pulse Resp B/P (MAP) Pulse Ox O2 Delivery O2 Flow Rate FiO2 07/08/17 04:56 97.3 73 18 160/85 97 Room Air 07/08/17 04:00 68 07/08/17 00:00 68 07/08/17 00:00 97.6 71 18 151/74 96 Room Air 07/07/17 21:18 74 135/69 07/07/17 20:00 70 07/07/17 20:00 98.2 74 18 135/69 95 Nasal Cannula 07/07/17 19:10 66 147/73 07/07/17 17:59 Nasal Cannula 07/07/17 16:00 97.7 66 20 147/73 96 07/07/17 16:00 70 07/07/17 14:30 Nasal Cannula 07/07/17 12:00 157/80 07/07/17 12:00 78 07/07/17 12:00 98.2 76 20 157/80 98 Height (Feet): 5 Height (Inches): 7.00 Weight (Pounds): 190 General Appearance: no acute distress HEENT: mucous membranes moist Respiratory/Chest: lungs clear, other - O2 by cannula Cardiovascular: normal rate Abdomen: soft, non tender Extremities: no edema Current Medications Medications (Trade) Dose Ordered Sig/Leida Route PRN Reason Start Time Stop Time Status Last Admin Dose Admin Acetaminophen/ Hydrocodone Bitart ([place] 5/325) 1 tab Q4H PRN ORAL Moderate Pain (Pain Scale 4-6) 07/07/17 10:15 07/14/17 10:14 Amlodipine Besylate (Norvasc) 5 mg BID ORAL 07/07/17 18:00 08/05/17 08:59 07/07/17 19:10 Aspirin (ASA) 325 mg DAILY ORAL 07/05/17 09:00 1/28/18 08:59 07/05/17 09:29 Calcium Carbonate (Tums) 500 mg Q3H PRN ORAL Abdominal cramps 07/06/17 16:30 08/05/17 16:29 07/08/17 02:36 Carvedilol (Coreg) 25 mg EVERY 12 HOURS ORAL 07/05/17 09:00 08/04/17 08:59 07/07/17 21:18 Clonidine HCl (Catapres) 0.1 mg Q4H PRN ORAL SBP above 160 07/01/17 16:00 07/31/17 15:59 07/04/17 00:07 Dextrose (Dextrose 50%) STAT PRN IV Hypoglycemia 07/01/17 02:00 07/31/17 01:59 Docusate Sodium (Colace) 100 mg THREE TIMES A DAY ORAL 07/02/17 13:00 08/01/17 12:59 07/07/17 08:50 Epoetin Lizandro (Procrit (for ESRD on dialysis)) 10,000 units SAT-SAT-SAT SUBQ 07/03/17 21:00 08/02/17 20:59 07/05/17 22:15 Heparin Sodium (Porcine) (Heparin 5000 units/ml) 5,000 units EVERY 12 HOURS SUBQ 07/01/17 21:00 07/31/17 20:59 07/07/17 21:19 Insulin Aspart (NovoLOG) BEFORE MEALS AND HS SUBQ 07/01/17 06:30 07/31/17 06:29 07/08/17 06:55 Insulin Detemir (Levemir) 4 units BID SUBQ 07/06/17 18:00 08/05/17 17:59 07/07/17 19:12 Isosorbide Mononitrate (Imdur) 60 mg DAILY ORAL 07/05/17 10:00 08/04/17 09:59 07/07/17 08:49 Lisinopril (Prinivil) 40 mg DAILY ORAL 07/06/17 09:00 08/05/17 08:59 07/07/17 08:50 Nitroglycerin (Ntg) 1 patch Q24H TDERMAL 07/04/17 12:00 08/03/17 11:59 07/06/17 12:34 Ondansetron HCl (Zofran) 4 mg Q6H PRN IVP Nausea & Vomiting 07/01/17 02:00 07/31/17 01:59 07/02/17 22:13 Sevelamer Carbonate (Renvela) 2,400 mg THREE TIMES A DAY ORAL 07/07/17 13:00 08/06/17 12:59 07/07/17 19:09 MILAGRO LOCKHART Jul 08, 2017 09:11
[2017-07-08] MEDS: Renvela 800mg Pkt ORAL SCH ×3 (10:22→18:42)
[2017-07-08] MEDS: Lisinopril 20mg tab ORAL SCH (10:23)
[2017-07-08] MEDS: Levemir Flexpen SUBQ SCH ×2 (10:25→18:43)
[2017-07-08] MEDS: Imdur 30mg tab ORAL SCH (10:39)
[2017-07-08] MEDS: Carvedilol 6.25mg Tab ORAL SCH ×2 (10:39→21:55)
[2017-07-08 12:00] VITALS: BP 128/78
[2017-07-08] MEDS: Nitroglycerin Patch 0.2mg/hr TDERMAL SCH (12:53)
[2017-07-08] MEDS ORDERED: Tubing IV Secondary IV ONE (14:50)
[2017-07-08] MEDS ORDERED: NS 275ml ONE (14:50)
[2017-07-08] MEDS ORDERED: NS 500ML ONE (14:50)
--- NOTE | 2017-07-08 15:08 | Nephrology Progress Note ---
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 Fevers, nausea, and vomiting, possible gastroenteritis or other colitis. 2. Acute on chronic diastolic congestive heart failure. 3. Acute myocardial ischemia and possible [id number] infarction. troponin rising 4. End-stage renal disease. 5. Anemia of chronic kidney disease. 6. Type 2 diabetes mellitus. 7. Hypertensive heart disease, now with hypertensive urgency. Plan Plan: refuses ASA and Heparin !!! Uncoaporative with taking meds adjust BP meds and HR increase Norvasc next HD 07/09/17 IV iron and SQ EPO increase Renvela Antibiotics optimize cardiac and pulm status per orders Subjective ROS Limited/Unobtainable: No Constitutional: Reports: malaise, weakness Objective Objective Last 24 Hour Vital Signs Date Time Temp Pulse Resp B/P (MAP) Pulse Ox O2 Delivery O2 Flow Rate FiO2 07/08/17 12:53 155/73 07/08/17 10:39 155/67 07/08/17 10:39 74 155/67 07/08/17 10:27 74 155/67 07/08/17 10:23 155/67 07/08/17 08:00 97.7 74 20 155/67 92 Room Air 07/08/17 04:56 97.3 73 18 160/85 97 Room Air 07/08/17 04:00 68 07/08/17 00:00 68 07/08/17 00:00 97.6 71 18 151/74 96 Room Air 07/07/17 21:18 74 135/69 07/07/17 20:00 70 07/07/17 20:00 98.2 74 18 135/69 95 Nasal Cannula 07/07/17 19:10 66 147/73 07/07/17 17:59 Nasal Cannula 07/07/17 16:00 97.7 66 20 147/73 96 07/07/17 16:00 70 Intake and Output 07/07/17 07/08/17 19:00 07:00 Intake Total 120 ml Output Total 3200 ml 100 ml Balance -3080 ml -100 ml Intake Oral 120 ml Output Urine Total 100 ml Hemodialysis UF 3200 ml Height (Feet): 5 Height (Inches): 7.00 Weight (Pounds): 190 General Appearance: no apparent distress Objective no change in PE OUSMANE VALENTINE Jul 08, 2017 15:08
[2017-07-08 16:00] VITALS: BP 149/69
[2017-07-08 20:00] VITALS: BP 138/70
[2017-07-08] MEDS: Epogen (for ESRD on dialysis) SUBQ SCH (21:54)
[2017-07-09] VITALS (7 sets, daily range): BP systolic 133–159; BP diastolic 50–81
--- NOTE | 2017-07-09 03:30 | Progress Note ---
DATE: 07/08/2017 CARDIOLOGY PROGRESS NOTE SUBJECTIVE: The patient has some shortness of breath. No chest pain. He refuses aspirin. He is scheduled for hemodialysis with ultrafiltration tomorrow. He also refuses some of his cardiovascular medications. He has no chest pain. OBJECTIVE: VITAL SIGNS: His blood pressure is labile but improving overall, 135/69 to 160/85, heart rate 68 to 74, respiratory rate 18 to 20, afebrile. HEENT: Temporal wasting. LUNGS: Coarse breath sounds. HEART: Regular rhythm and rate. Normal S1, S2. There is a fourth heart sound. ABDOMEN: Soft. EXTREMITIES: Trace edema. LABORATORY DATA: No new laboratories. IMPRESSION: 1. Acute myocardial infarction. 2. End-stage renal disease. 3. Possible pneumonia. 4. Insulin-requiring diabetes mellitus. 5. Cerebrovascular disease. PLAN: 1. Hemodialysis with ultrafiltration for volume management. 2. Encourage compliance with antiplatelet therapy. 3. Insulin titration. 4. Maintenance dose antihypertensive to be achieved by titration. Gonzalo Salas M.D. DR: Nora JOB#: [id number] CC:
[2017-07-09 06:00] LABS: BASOPHILS % (AUTO) 1.5 % (0.0-2.0); EOSINOPHILS % (AUTO) 1.1 % (0.0-3.0); HEMATOCRIT 26.8 % (42.0-52.0); HEMOGLOBIN 8.3 G/DL (14.2-18.0); LYMPHOCYTES % (AUTO) 6.8 % (20.0-45.0); MEAN CORPUSCULAR VOLUME 88 FL (80-99); MONOCYTES % (AUTO) 8.1 % (1.0-10.0); NEUTROPHILS % (AUTO) 82.6 % (45.0-75.0); PLATELET COUNT 215 K/UL (150-450); RED BLOOD COUNT 3.04 M/UL (4.70-6.10); RED CELL DISTRIBUTION WIDTH 15.2 % (11.6-14.8); WHITE BLOOD COUNT 7.4 K/UL (4.8-10.8)
[2017-07-09] MEDS: NovoLOG Insulin Flexpen SUBQ SCH ×2 (06:22→11:30)
[2017-07-09 06:24] LABS: ALANINE AMINOTRANSFERASE 21 U/L (12-78); ALBUMIN 2.7 G/DL (3.4-5.0); ALBUMIN/GLOBULIN RATIO 0.6 (1.0-2.7); ALKALINE PHOSPHATASE 81 U/L (46-116); ANION GAP 10 mmol/L (5-15); ASPARTATE AMINO TRANSFERASE 20 U/L (15-37); BILIRUBIN,TOTAL 0.9 MG/DL (0.2-1.0); BLOOD UREA NITROGEN 90 mg/dL (7-18); CALCIUM 10.3 MG/DL (8.5-10.1); CARBON DIOXIDE 31 MMOL/L (21-32); CHLORIDE 95 MMOL/L (98-107); CREATININE 11.5 MG/DL (0.55-1.30); PHOSPHORUS 6.7 MG/DL (2.5-4.9); POTASSIUM 4.5 MMOL/L (3.5-5.1); SODIUM 136 MMOL/L (136-145)
--- NOTE | 2017-07-09 08:52 | General Progress Note ---
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 ICD Codes: I13.2 - Hypertensive heart and chronic kidney disease with heart failure and with stage 5 chronic kidney disease, or end stage renal disease; I50.83 - High output heart failure; N18.6 - End stage renal disease; Z99.2 - Dependence on renal dialysis SNOMED: 77549137, [id number], [id number] Status: stable, progressing Assessment/Plan HD per renal o2 resp care cxr better added tums for heartburn monitor bs check room air o2 sat may need home o2 dc planning consider snf Subjective ROS Limited/Unobtainable: No Constitutional: Reports: malaise, weakness HEENT: Reports: no symptoms Cardiovascular: Reports: no symptoms Respiratory: Reports: shortness of breath Gastrointestinal/Abdominal: Reports: no symptoms Genitourinary: Reports: no symptoms Neurologic/Psychiatric: Reports: no symptoms Endocrine: Reports: no symptoms Hematologic/Lymphatic: Reports: anemia Allergies: Coded Allergies: No Known Allergies (Unverified , 06/30/17) All Systems: reviewed and negative except above Subjective mild sob. on 3L nasal cannula. Per RN yesterday o2 sats 95% on room air. troponin trending down. no cp Objective Last 24 Hour Vital Signs Date Time Temp Pulse Resp B/P (MAP) Pulse Ox O2 Delivery O2 Flow Rate FiO2 07/09/17 04:45 97.2 68 22 148/50 Nasal Cannula 3.0 07/09/17 04:30 Nasal Cannula 3.0 07/09/17 04:00 97.7 71 19 159/81 94 Room Air 07/09/17 04:00 69 07/09/17 00:00 97.9 66 21 152/72 95 Nasal Cannula 07/09/17 00:00 69 07/08/17 21:55 70 138/70 07/08/17 20:00 98.1 70 18 138/70 96 Nasal Cannula 07/08/17 20:00 70 07/08/17 18:42 76 149/69 07/08/17 16:00 98.0 76 20 149/69 93 Room Air 07/08/17 16:00 70 07/08/17 12:53 155/73 07/08/17 12:00 97.9 60 20 128/78 97 Room Air 07/08/17 12:00 65 07/08/17 10:39 155/67 07/08/17 10:39 74 155/67 07/08/17 10:27 74 155/67 07/08/17 10:23 155/67 Intake and Output 07/08/17 07/09/17 19:00 07:00 Output Total 0 ml Balance 0 ml Output Urine Total 0 ml # Bowel Movements 1 Laboratory Tests 07/09/17 04:45: White Blood Count 7.4, Red Blood Count 3.04L, Hemoglobin 8.3L, Hematocrit 26.8L , Mean Corpuscular Volume 88, Mean Corpuscular Hemoglobin 27.4, Mean Corpuscular Hemoglobin Concent 31.2L, Red Cell Distribution Width 15.2H, Platelet Count 215, Mean Platelet Volume 7.2, Neutrophils (%) (Auto) 82.6H, Lymphocytes (%) (Auto) 6.8L, Monocytes (%) (Auto) 8.1, Eosinophils (%) (Auto) 1.1, Basophils (%) (Auto) 1.5, Sodium Level 136, Potassium Level 4.5, Chloride Level 95L, Carbon Dioxide Level 31, Anion Gap 10, Blood Urea Nitrogen 90H, Creatinine 11.5H, Estimat Glomerular Filtration Rate 5.5, Glucose Level 193H, Uric Acid 7.6H, Calcium Level 10.3H, Phosphorus Level 6.7H, Magnesium Level 2.5H , Total Bilirubin 0.9, Aspartate Amino Transf (AST/SGOT) 20, Alanine Aminotransferase (ALT/SGPT) 21, Alkaline Phosphatase 81, Troponin I 0.496H, C- Reactive Protein, Quantitative 5.6H, Pro-B-Type Natriuretic Peptide > 91166V, Total Protein 6.9, Albumin 2.7L, Globulin 4.2, Albumin/Globulin Ratio 0.6L Height (Feet): 5 Height (Inches): 7.00 Weight (Pounds): 190 Objective General Appearance: WD/WN, alert Neck: supple Cardiovascular: normal rate Respiratory/Chest: lungs clear, normal breath sounds, no respiratory distress Abdomen: normal bowel sounds, non tender, soft, no organomegaly Edema: no edema noted Arm (L), no edema noted Arm (R), no edema noted Leg (L), no edema noted Leg (R), no edema noted Pedal (L), no edema noted Pedal (R), no edema noted 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
[2017-07-09] MEDS: Carvedilol 6.25mg Tab ORAL SCH (08:55)
[2017-07-09] MEDS: Imdur 30mg tab ORAL SCH (08:55)
[2017-07-09] MEDS: Lisinopril 20mg tab ORAL SCH (08:56)
[2017-07-09] MEDS: Renvela 800mg Pkt ORAL SCH ×2 (08:56→12:42)
[2017-07-09] MEDS: Heparin 5000 units/ml inj SUBQ SCH (09:00)
[2017-07-09] MEDS: Aspirin Baby 81mg ORAL SCH (09:00)
[2017-07-09] MEDS: Docusate 100mg cap ORAL SCH ×2 (09:00→12:42)
[2017-07-09] MEDS: Levemir Flexpen SUBQ SCH (09:00)
--- NOTE | 2017-07-09 11:03 | Infectious Diseases Prog Note ---
Assessment/Plan Assessment/Plan antibiotics : none A 1. fever resolved 2. DM 3. HTN 4. renal failure P 1. observe off antibiotics Subjective Constitutional: Denies: fever, chills Respiratory: Reports: dry cough - decreasing, Denies: shortness of breath Gastrointestinal/Abdominal: Denies: nausea, vomiting, diarrhea Musculoskeletal: Denies: pain Allergies: Coded Allergies: No Known Allergies (Unverified , 06/30/17) Objective Vital Signs Last 24 Hour Vital Signs Date Time Temp Pulse Resp B/P (MAP) Pulse Ox O2 Delivery O2 Flow Rate FiO2 07/09/17 08:56 133/73 07/09/17 08:55 133/73 07/09/17 08:55 72 133/73 07/09/17 08:54 72 133/73 07/09/17 08:20 Nasal Cannula 3.0 07/09/17 08:10 97.0 69 21 143/77 96 Nasal Cannula 3.0 07/09/17 08:00 97.6 72 20 133/73 Nasal Cannula 3.0 07/09/17 04:45 97.2 68 22 148/50 Nasal Cannula 3.0 07/09/17 04:30 Nasal Cannula 3.0 07/09/17 04:00 97.7 71 19 159/81 94 Room Air 07/09/17 04:00 69 07/09/17 00:00 97.9 66 21 152/72 95 Nasal Cannula 07/09/17 00:00 69 07/08/17 21:55 70 138/70 07/08/17 20:00 98.1 70 18 138/70 96 Nasal Cannula 07/08/17 20:00 70 07/08/17 18:42 76 149/69 07/08/17 16:00 98.0 76 20 149/69 93 Room Air 07/08/17 16:00 70 07/08/17 12:53 155/73 07/08/17 12:00 97.9 60 20 128/78 97 Room Air 07/08/17 12:00 65 Height (Feet): 5 Height (Inches): 7.00 Weight (Pounds): 190 Respiratory/Chest: lungs clear Cardiovascular: normal rate, regular rhythm, no gallop/murmur Abdomen: soft, non tender Extremities: no edema Laboratory Tests Test 07/09/17 04:45 White Blood Count 7.4 K/UL (4.8-10.8) Red Blood Count 3.04 M/UL (4.70-6.10) L Hemoglobin 8.3 G/DL (14.2-18.0) L Hematocrit 26.8 % (42.0-52.0) L Mean Corpuscular Volume 88 FL (80-99) Mean Corpuscular Hemoglobin 27.4 PG (27.0-31.0) Mean Corpuscular Hemoglobin Concent 31.2 G/DL (32.0-36.0) L Red Cell Distribution Width 15.2 % (11.6-14.8) H Platelet Count 215 K/UL (150-450) Mean Platelet Volume 7.2 FL (6.5-10.1) Neutrophils (%) (Auto) 82.6 % (45.0-75.0) H Lymphocytes (%) (Auto) 6.8 % (20.0-45.0) L Monocytes (%) (Auto) 8.1 % (1.0-10.0) Eosinophils (%) (Auto) 1.1 % (0.0-3.0) Basophils (%) (Auto) 1.5 % (0.0-2.0) Sodium Level 136 MMOL/L (136-145) Potassium Level 4.5 MMOL/L (3.5-5.1) Chloride Level 95 MMOL/L (98-107) L Carbon Dioxide Level 31 MMOL/L (21-32) Anion Gap 10 mmol/L (5-15) Blood Urea Nitrogen 90 mg/dL (7-18) H Creatinine 11.5 MG/DL (0.55-1.30) H Estimat Glomerular Filtration Rate 5.5 mL/min (>60) Glucose Level 193 MG/DL (74-106) H Uric Acid 7.6 MG/DL (2.6-7.2) H Calcium Level 10.3 MG/DL (8.5-10.1) H Phosphorus Level 6.7 MG/DL (2.5-4.9) H Magnesium Level 2.5 MG/DL (1.8-2.4) H Total Bilirubin 0.9 MG/DL (0.2-1.0) Aspartate Amino Transf (AST/SGOT) 20 U/L (15-37) Alanine Aminotransferase (ALT/SGPT) 21 U/L (12-78) Alkaline Phosphatase 81 U/L (46-116) Troponin I 0.496 ng/mL (0.000-0.056) C-Reactive Protein, Quantitative 5.6 mg/dL (0.00-0.90) H Pro-B-Type Natriuretic Peptide > 35255 pg/mL (0-125) H Total Protein 6.9 G/DL (6.4-8.2) Albumin 2.7 G/DL (3.4-5.0) L Globulin 4.2 g/dL Albumin/Globulin Ratio 0.6 (1.0-2.7) L MADISON CAI Jul 09, 2017 11:03
[2017-07-09] MEDS: Nitroglycerin Patch 0.2mg/hr TDERMAL SCH (12:42)
--- NOTE | 2017-07-09 15:11 | Nephrology Progress Note ---
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 Fevers, nausea, and vomiting, possible gastroenteritis or other colitis. 2. Acute on chronic diastolic congestive heart failure. 3. Acute myocardial ischemia and possible ntz-BF-nwphaased infarction. troponin rising 4. End-stage renal disease. 5. Anemia of chronic kidney disease. 6. Type 2 diabetes mellitus. 7. Hypertensive heart disease, now with hypertensive urgency. Plan Plan: refuses ASA and Heparin !!! Uncoaporative with taking meds adjust BP meds and HR increase Norvasc next HD 07/09/17 done IV iron and SQ EPO increase Renvela Antibiotics optimize cardiac and pulm status per orders Subjective ROS Limited/Unobtainable: No Objective Objective Last 24 Hour Vital Signs Date Time Temp Pulse Resp B/P (MAP) Pulse Ox O2 Delivery O2 Flow Rate FiO2 07/09/17 12:42 142/72 07/09/17 12:00 97.7 60 21 142/72 94 Nasal Cannula 3.0 07/09/17 08:56 133/73 07/09/17 08:55 133/73 07/09/17 08:55 72 133/73 07/09/17 08:54 72 133/73 07/09/17 08:20 Nasal Cannula 3.0 07/09/17 08:10 97.0 69 21 143/77 96 Nasal Cannula 3.0 07/09/17 08:00 97.6 72 20 133/73 Nasal Cannula 3.0 07/09/17 04:45 97.2 68 22 148/50 Nasal Cannula 3.0 07/09/17 04:30 Nasal Cannula 3.0 07/09/17 04:00 97.7 71 19 159/81 94 Room Air 07/09/17 04:00 69 07/09/17 00:00 97.9 66 21 152/72 95 Nasal Cannula 07/09/17 00:00 69 07/08/17 21:55 70 138/70 07/08/17 20:00 98.1 70 18 138/70 96 Nasal Cannula 07/08/17 20:00 70 07/08/17 18:42 76 149/69 1/1/18 16:00 98.0 76 20 149/69 93 Room Air 07/08/17 16:00 70 Intake and Output 07/08/17 07/09/17 19:00 07:00 Output Total 0 ml Balance 0 ml Output Urine Total 0 ml # Bowel Movements 1 Laboratory Tests 07/09/17 04:45: White Blood Count 7.4, Red Blood Count 3.04L, Hemoglobin 8.3L, Hematocrit 26.8L , Mean Corpuscular Volume 88, Mean Corpuscular Hemoglobin 27.4, Mean Corpuscular Hemoglobin Concent 31.2L, Red Cell Distribution Width 15.2H, Platelet Count 215, Mean Platelet Volume 7.2, Neutrophils (%) (Auto) 82.6H, Lymphocytes (%) (Auto) 6.8L, Monocytes (%) (Auto) 8.1, Eosinophils (%) (Auto) 1.1, Basophils (%) (Auto) 1.5, Sodium Level 136, Potassium Level 4.5, Chloride Level 95L, Carbon Dioxide Level 31, Anion Gap 10, Blood Urea Nitrogen 90H, Creatinine 11.5H, Estimat Glomerular Filtration Rate 5.5, Glucose Level 193H, Uric Acid 7.6H, Calcium Level 10.3H, Phosphorus Level 6.7H, Magnesium Level 2.5H , Total Bilirubin 0.9, Aspartate Amino Transf (AST/SGOT) 20, Alanine Aminotransferase (ALT/SGPT) 21, Alkaline Phosphatase 81, Troponin I 0.496H, C- Reactive Protein, Quantitative 5.6H, Pro-B-Type Natriuretic Peptide > 23483I, Total Protein 6.9, Albumin 2.7L, Globulin 4.2, Albumin/Globulin Ratio 0.6L Height (Feet): 5 Height (Inches): 7.00 Weight (Pounds): 190 General Appearance: no apparent distress Cardiovascular: normal rate Respiratory/Chest: decreased breath sounds Objective no change in PE OUSMANE VALENTINE Jul 09, 2017 15:11
--- NOTE | 2017-07-10 03:45 | Progress Note ---
DATE: 07/09/2017 CARDIOLOGY PROGRESS NOTE SUBJECTIVE: The patient was counseled extensively regarding medications prescribed, indications, benefits, and risks and I have encouraged compliance. OBJECTIVE: VITAL SIGNS: Blood pressure 142/72, pulse 60, respiratory rate 21, and afebrile. NECK: Supple. LUNGS: Clear. CARDIAC: Regular. Normal S1, S2 with a fourth heart sound. ABDOMEN: Soft. EXTREMITIES: No edema. IMPRESSION: 1. Acute myocardial infarction. 2. Ischemic cardiomyopathy. 3. Acute and chronic diastolic and systolic congestive heart failure. 4. End-stage renal disease. 5. Anemia of chronic kidney disease. 6. Type 2 diabetes mellitus with complication. 7. Hypertensive urgency, resolved. 8. Functional decline. PLAN: Medication titration as noted above. Encourage compliance. Needs rehabilitation. Agreed to short stay at custodial facility. Gonzalo Salas M.D. DR: Nora JOB#: [id number] CC:
--- NOTE | 2017-07-11 13:11 | Diagnostic Imaging Report ---
APPROVED REPORT CPT Code: 77845 Present Symptoms Lower Extremity Pain: Bilateral BILATERAL: Imaging reveals a patent deep venous system bilaterally. There is no evidence of thrombus within the femoral, popliteal or tibial segments. The greater saphenous veins are also within normal limits. Doppler indicates normal spontaneous flow within these segments.
--- NOTE | 2017-07-12 09:09 | Discharge Summary ---
Discharge Summary Hospital Course Date of Admission Jun 30, 2017 at 22:08 Date of Discharge Jul 09, 2017 at 16:00 Admitting Diagnosis gen weakness, n/v HPI Amilcar Steiner is a 62 year old male who was admitted on Jun 30, 2017 at 22:08 for Generalized Weakness,Nausea And Vomiting Hospital Course [id number] Discharge Discharge Disposition Patient was discharged to SNF/Subacute Facility(03) Discharge Diagnoses: Madie Trent NP Jul 12, 2017 09:09
--- NOTE | 2017-07-12 22:01 | Discharge Summary 2 SIG ---
DATE OF ADMISSION: 06/30/2017 DATE OF DISCHARGE: 07/09/2017 CONSULTANTS: 1. Jevon Nava M.D. 2. Brett John M.D. 3. Carmela Rm M.D. BRIEF HOSPITAL COURSE: The patient is a 62-year-old male with end-stage renal disease, on hemodialysis 3 times a week. Last dialysis was the day prior to admission. He developed nausea, vomiting, and fevers with anorexia. He had two to three episodes of bilious vomiting and had abdominal pain and diarrhea and had a slight cough. On evaluation at ED, he was noted to be febrile. Temperature was 101.5. CT of the head showed mild atrophy with mild chronic small vessel white matter ischemic changes. No acute abnormality seen. He was having upper respiratory infection with result in loss of appetite, weakness, and inability to perform ADLs. He was unable to mobilize independently. Chest x-ray done showed cardiomegaly with no acute findings. His troponin initially was 0.23. Troponin levels were monitored and kept rising. He was then diagnosed with acute non-ST elevated PA and was given aspirin. He was started on IV vancomycin and cefepime for possible pneumonia. He was continued on inpatient hemodialysis with ultrafiltration and was given Epogen for anemia. Heart failure regimens were optimized. He was given lisinopril and Coreg dose was increased. The patient is uncooperative with medications and refuses aspirin and heparin. He eventually defervesced and antibiotics were discontinued. Blood culture did not isolate any growth. VRE and MRSA screens were negative. He continued to need oxygen support via nasal cannula. He underwent myocardial perfusion scan on 07/05/2017. Findings showed a fixed perfusion defect in the inferior wall/apex, anterior wall, and anteroseptal segment. Left ventricular ejection fraction of 27%. He was eventually discharged to SNF for short-term placement to continue rehabilitation. FINAL DIAGNOSES: 1. Acute myocardial infarction. 2. Ischemic cardiomyopathy. 3. Acute on chronic diastolic and systolic congestive heart failure. 4. End-stage renal disease on hemodialysis. 5. Anemia of chronic kidney disease. 6. Type 2 diabetes mellitus with complication. 7. Hypertensive urgency, resolved. 8. Functional decline. 9. Possible pneumonia. 10. Noncompliance with medications. DISPOSITION: The patient was discharged to [facility]. Gonzalo Salas M.D. I have been assigned to dictate discharge summary on this account and I was not involved in the patient's management. Madie Trent N.P. DR: LANE JOB#: [id number] CC: MALCOM
--- NOTE | 2017-07-16 12:50 | Cardiology Report ---
APPROVED REPORT EXAM: Two-dimensional and M-mode echocardiogram with Doppler and color Doppler. INDICATION Acute VT M-Mode DIMENSIONS IVSd1.2 (0.7-1.1cm)Left Atrium (MM)4.8 (1.6-4.0cm) LVDd6.0 (3.5-5.6cm)Aortic Root2.7 (2.0-3.7cm) IVSs1.2 cm LVDs4.8 (2.5-4.0cm) PWs1.8 cm Left ventricular enlargement. Global left ventricular hypokinesis. Distal segments and apical akinesis. Left ventricular ejection fraction estimated to be 30-35 %. Increased E point-interventricular septal separation c/w left ventricular dysfunction. Mild left ventricular hypertrophy. Small posterior pericardial effusion. Moderate bi-atrial enlargement. Right ventricular chamber size is within normal limits. Aortic valve calcification with decreased cusp excursion c/w mild aortic stenosis. Moderately thickened mitral valve leaflets with normal excursion. Mitral annulus and aortic root calcification. Pulmonic valve not well visualized. Normal tricuspid valve structure. IVC dilated at 2.6 cm with slight physiologic collapse suggestive of increased RA pressure. A color flow and spectral Doppler study was performed and revealed: Peak aortic valve gradient of 25 mm Hg and a mean of 14 mmHg. Aortic valve area 1.5 cm2 calculated by continuity equation. Trace mitral regurgitation. Mitral inflow velocities indicates possible pseudo normalization pattern implying moderately elevated left atrial pressure (Grade II). Moderate to severe tricuspid regurgitation. Tricuspid systolic velocities suggests peak right ventricular systolic pressure of 93 mmHg, consistent with severe pulmonary hypertension.
== END 2017-07-09 16:00 | DRG 280 ==
LOC: EDBD 16:57 → EMR 17:35 → EDBEDREQ 18:51 → EDBEDREQSVC 18:57 → EDBEDREQ 18:57 → 2E 22:08
PROC: 5A1D70Z Performance of Urinary Filtration, Intermittent, Less than 6 Hours Per Day (ICD-10-PCS; principal; 2017-07-01)
DX: I13.2 Hypertensive heart and chronic kidney disease with heart failure and with stage 5 chronic kidney disease, or end stage renal disease (principal); I21.4 Non-ST elevation (NSTEMI) myocardial infarction; J18.9 Pneumonia, unspecified organism; N18.6 End stage renal disease; E11.22 Type 2 diabetes mellitus with diabetic chronic kidney disease; I50.33 Acute on chronic diastolic (congestive) heart failure; I50.84 End stage heart failure; I16.0 Hypertensive urgency; Z99.2 Dependence on renal dialysis; E11.319 Type 2 diabetes mellitus with unspecified diabetic retinopathy without macular edema; K52.9 Noninfective gastroenteritis and colitis, unspecified; D63.1 Anemia in chronic kidney disease; D50.9 Iron deficiency anemia, unspecified; I25.10 Atherosclerotic heart disease of native coronary artery without angina pectoris; Z95.5 Presence of coronary angioplasty implant and graft; I25.5 Ischemic cardiomyopathy; Z91.14 Patient's other noncompliance with medication regimen
CPT/HCPCS: 36415; 70450; 71010; 78452; 80048; 80053; 80061; 80202; 82248; 82550; 82553; 82607; 82728; 82746; 82962; 82977; 83036; 83540; 83550; 83605; 83690; 83735; 83880; 84100; 84443; 84484; 84550; 85007; 85025; 86140; 87040; 87081; 93005; 93017; 93306; 93970; 99284; J1815; J2405; J2785; S5561